=== PATIENT | male | born 1965 | race Caucasian/White ===

== ENCOUNTER 2016-08-29 09:59 | Emergency (ER) | payer SELFPAY ==
[2016-08-29 10:29] VITALS: BP 136/101
--- NOTE | 2016-08-29 11:34 | UC ---
Lower Extremity/Ankle HPI - HPI Summary HPI Summary: At around 0100, stepped on a piece of Rebar sticking out of concrete. Punctured through his running shoe, and he had a difficult time extracting it from his foot. Severe pain since then. Concerned because his last tetanus was more than 10 years ago. - History of Current Complaint Chief Complaint: UCTrauma Stated Complaint: LEFT FOOT 4TH TOE PUNCTURE WOUND-WC Time Seen by Provider: 08/29/16 11:04 Hx Obtained From: Patient Onset/Duration: Sudden Onset, Lasting Hours - about 11 hours ago. Pain Intensity: 10 Pain Scale Used: 0-10 Numeric Aggravating Factor(s): Standing, Ambulation Alleviating Factor(s): Rest, Elevation, Other - soakign Able to Bear Weight: Yes Related History: Occupational Injury - works at [employer] - Risk Factors Gout Risk Factors: Hypertension - Allergies/Home Medications Allergies/Adverse Reactions: Allergies Allergy/AdvReac Type Severity Reaction Status Date / Time Trazodone Allergy Severe See Comment Verified 08/29/16 10:30 Home Medications: Home Medications Clonazepam [Klonopin] 1 mg PO 08/29/16 [History] Hydrocodone/APAP 5/300 (NF) [Vicodin 5 MG/300 MG(NF)] 1 tab PO Q6H PRN 08/29/16 [History Confirmed 08/29/16] Levothyroxine TAB* [Synthroid TAB*] 75 mcg PO 0800 08/29/16 [History Confirmed 08/29/16] Lisinopril [Lisinopril 40 MG-] 40 mg PO DAILY 08/29/16 [History Confirmed ] Omeprazole CAP* [Prilosec CAP* 20 MG] 20 mg PO DAILY 08/29/16 [History Confirmed 08/29/16] Propranolol TAB* [Inderal TAB*] 20 mg PO BID 08/29/16 [History Confirmed ] PMH/Surg Hx/FS Hx/Imm Hx - Additional Past Medical History Additional PMH: 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 Uses [facility] Notably, [employer] search # [id number] does not show history of lyrica or narcotic use. Cardiovascular History: Hypertension Psychological History: Anxiety - Surgical History Surgical History: Yes Surgery Procedure, Year, and Place: hernia, priaprisim surgery(to correct an errection lasting > 4 hrs) - Family History Known Family History: Positive: Hypertension - father and son - Social History Occupation: Employed Full-time Lives: With Family Alcohol Use: None Substance Use Type: None Substance Use Comment - Amount & Last Used: vapes daily Smoking Status (MU): Former Smoker Type: Cigarettes When Did the Patient Quit Smoking/Using Tobacco: 2016 Review of Systems Constitutional: Negative Skin: Other - wound left foot third digit. Eyes: Negative ENT: Negative Respiratory: Negative Cardiovascular: Other - elevated blood pressure without chest pain or heart palpitations Gastrointestinal: Negative Genitourinary: Negative Motor: Negative Neurovascular: Negative Musculoskeletal: Other: - chronic hip pain. Neurological: Negative Psychological: Anxious, Other - ? sleep deprived. Has just worked 3 double shifts in a row. [facility], with [facility] with clonazepam and adderall. All Other Systems Reviewed And Are Negative: Yes Physical Exam Triage Information Reviewed: Yes Appearance: Pain Distress - moderate., Obese, Other: - anxious. Provides many details of history. Vital Signs: Initial Vital Signs Temp 98 F 08/29/16 10:13 Pulse 70 08/29/16 10:13 Resp 16 08/29/16 10:13 BP 136/101 08/29/16 10:13 Pulse Ox 100 08/29/16 10:13 Vital Signs Reviewed: Yes Respiratory: Positive: Lungs clear Cardiovascular: Positive: RRR, No Murmur Psychological Exam: Other - anxious Skin Exam: Other - left foot, plantar surface of 3rd digit with break in skin about 6 mm, with avulstion of small triangle about 3mm. No active bleeding. Normal flexion and extension of digit. Lower Extremity Course/Dx - Course Course Of Treatment: tetanus booster. Because of puncture through shoe, prophylactic use of augmentin to prevent infection. Elevation, off work. - Differential Dx/Diagnosis Provider Diagnoses: puncture wound left foot 3rd digit. Discharge - Discharge Plan Condition: Stable Disposition: HOME Prescriptions: Hydrocodone-Acetaminophen [Hydrocodone/Acetaminophen 10-325 mg] 1 tab PO Q6H PRN #10 tab MDD 4 PRN Reason: Pain Patient Education Materials: Puncture Wound (ED), Diphtheria/Pertussis/Tetanus Vaccine (By injection) Forms: *Work Release Additional Instructions: Continue elevation. I have sent in hydrocodone for pain control. you can use acetaminophen up to 3000mg per day (being cautious of the amount in the hydrocodone. Soak your foot in epsom salts 2 or 3 times per day. Keep the foot elevated as much as possible. You can be active around the house, but avoid excess activity until the wound appears healed. Off work, with return to work on 09/02/16. You have received a tetanus booster today.
[2016-08-29] MEDS ORDERED: Tetan/Diph/Pertus SYR(Tdap)* 0.5 ML SYR(BOOSTRIX) use SYR IM ONE (11:47)
== END 2016-08-29 12:25 | disposition home or self-care (01) ==
LOC: UCCORT 09:59
DX: S91.135A Puncture wound without foreign body of left lesser toe(s) without damage to nail, initial encounter (principal); W45.0XXA Nail entering through skin, initial encounter; Y93.9 Activity, unspecified; Y92.9 Unspecified place or not applicable; Y99.0 Civilian activity done for income or pay; I10 Essential (primary) hypertension; F41.9 Anxiety disorder, unspecified; E66.9 Obesity, unspecified; Z88.8 Allergy status to other drugs, medicaments and biological substances; Z87.891 Personal history of nicotine dependence
CPT/HCPCS: 90471; 90715; 99202; G0463

== ENCOUNTER 2016-11-28 14:44 | Emergency (ER) | payer BC ==
[2016-11-28 15:38] VITALS: BP 122/94
--- NOTE | 2016-11-28 16:01 | UC ---
Hip/Pelvis Pain - HPI Summary HPI Summary: 50 year old male with chronic hip pain and avascular hip pain . He [facility] and [facility] but had flat tire and missed appt and will try to go tomorrow. He is unhappy with ortho at the [facility] and wants referral to another ortho. He is in extreme pain and failed numerous meds awaiting hip replacement. has failed gabapentin, NSAIDs, steroids and GARRY. He is in severe pain and looking for pain meds at this time - History Of Current Complaint Chief Complaint: UCBackPain Stated Complaint: RIGHT HIP,BACK,THIGH,BUTTOCK PAIN Time Seen by Provider: 11/28/16 15:50 Hx Obtained From: Patient Onset/Duration: Gradual Onset Timing: Constant Severity Initially: Moderate Severity Currently: Severe - Allergies/Home Medications Allergies/Adverse Reactions: Allergies Allergy/AdvReac Type Severity Reaction Status Date / Time Trazodone Allergy Severe See Comment Verified 11/28/16 15:20 Home Medications: Home Medications ARIPiprazole TAB* [Abilify TAB*] 5 mg PO DAILY 11/28/16 [History Confirmed ] Diclofenac Potassium [Zipsor] 25 mg PO BID 11/28/16 [History Confirmed 11/28/16] Levothyroxine TAB* [Synthroid TAB*] 50 mcg PO 11/28/16 [History] Pregabalin CAP(*) [Lyrica CAP(*)] 50 mg PO BID 11/28/16 [History Confirmed 11/28] PMH/Surg Hx/FS Hx/Imm Hx Previously Healthy: Yes - Surgical History Surgical History: Yes Surgery Procedure, Year, and Place: hernia, priaprisim surgery(to correct an errection lasting > 4 hrs) - Family History Known Family History: Positive: Hypertension - father and son - Social History Occupation: Employed Full-time Lives: With Family Alcohol Use: None Substance Use Type: None Substance Use Comment - Amount & Last Used: vapes daily Smoking Status (MU): Former Smoker Type: Cigarettes, eCigarettes When Did the Patient Quit Smoking/Using Tobacco: 2016 Cessation Counseling: Patient Advised to Stop Review of Systems Neurovascular: Decreased Sensation Musculoskeletal: Arthralgia, Decreased ROM All Other Systems Reviewed And Are Negative: Yes Physical Exam Triage Information Reviewed: Yes Appearance: Well-Appearing, No Pain Distress, Well-Nourished Vital Signs: Initial Vital Signs Temp 98.5 F 11/28/16 15:26 Pulse 88 11/28/16 15:26 Resp 16 11/28/16 15:26 BP 122/94 11/28/16 15:26 Pulse Ox 100 11/28/16 15:26 Vital Signs Reviewed: Yes Eye Exam: Normal ENT Exam: Normal Dental Exam: Normal Neck exam: Normal Neck: Positive: 1 Respiratory Exam: Normal Cardiovascular Exam: Normal Musculoskeletal Exam: Normal Musculoskeletal: Positive: Other: - b/l hip pain with movement. Neurological Exam: Normal Psychological Exam: Normal Skin Exam: Normal Hip Injury Course/Dx - Course Course Of Treatment: He has documented avascular necrosis of both hips and extreme pain. He has failed numerous meds and asking for 1 day supply of narcotics to get through to [facility] -- we will give 4 pills to help for today until he can be seen. He is awaiting a hip replacement but desires second opinion and will refer to [facility] [place] at this time. Reference #: [id number] - Differential Dx/Diagnosis Differential Diagnosis/HQI/PQRI: Sprain, Strain Provider Diagnoses: avascular necrosis b/l hips Discharge - Discharge Plan Condition: Good Disposition: HOME Prescriptions: HYDROcodone/ACETAMIN 5-325 MG* [[place] 5-325 TAB*] 1 tab PO Q6H PRN #4 tab MDD 4 PRN Reason: Severe Pain Patient Education Materials: Hip Pain (ED) Referrals: Rivera Cordoba MD [Medical Doctor] - As Soon As Possible (Ortho referral ) Non Staff,Doctor [Medical Doctor] - As Soon As Possible
== END 2016-11-28 16:33 | disposition home or self-care (01) ==
LOC: UCCORT 14:44
DX: M87.851 Other osteonecrosis, right femur (principal); M87.852 Other osteonecrosis, left femur; F17.210 Nicotine dependence, cigarettes, uncomplicated; Z88.5 Allergy status to narcotic agent
CPT/HCPCS: 99212; G0463

== ENCOUNTER 2016-12-12 08:42 | Inpatient (IN) | payer BC, MEDICARE ==
--- NOTE | 2016-12-09 09:12 | HP ---
HISTORY AND PHYSICAL: DATE OF ADMISSION/SURGERY: 12/12/16. DATE OF OFFICE VISIT: 12/06/16. SURGEON: Pauline Stafford MD* (dictated by SOPHIA Tony). PROCEDURE: Right total hip arthroplasty. CHIEF COMPLAINT: Right hip pain. HISTORY OF PRESENT ILLNESS: Mr. Dunham is a 50-year-old gentleman with complaints of right hip pain secondary to severe avascular necrosis. He failed conservative management and is elected to proceed with a right total hip arthroplasty which is scheduled for 12/12/[address] Stafford. PAST MEDICAL HISTORY: ADHD, hypertension, hypothyroidism, exercise induced asthma, and GERD. PAST SURGICAL HISTORY: Hernia repair and priapism surgery. CURRENT MEDICATIONS: 1. Vitamin D. 2. Omeprazole. 3. Lyrica. 4. Amphetamine-dextroamphetamine ER. 5. Clonazepam. 6. Lisinopril. 7. Propranolol. 8. Levothyroxine. 9. Diclofenac. 10. Flexeril. 11. Oxycodone. ALLERGIES: To . FAMILY HISTORY: Diabetes. SOCIAL HISTORY: This is a 50-year-old gentleman lives with his . He does not smoke or use drugs. REVIEW OF SYSTEMS: A complete 14-point review of systems is reviewed with the patient, and was positive for hypothyroidism. He denies history of DVT, PE or anesthesia problems. PHYSICAL EXAMINATION GENERAL: He is well developed, well nourished, in no acute distress. VITAL SIGNS: He stands 72 inches tall, weighs 234 pounds. His blood pressure 116/80, his heart rate was 100. HEENT: Normocephalic, atraumatic. NECK: Supple. No palpable lymph nodes. PULMONARY: Lungs are clear to auscultation bilaterally. CARDIO: Regular rate and rhythm. Strong S1, S2. ABDOMEN: Soft, nontender, nondistended. MUSCULOSKELETAL: Right lower extremity, the skin is intact. There are no open wounds or abrasions. He walks with an antalgic type gait favoring his right hip. His lower extremity muscle group strengths are intact at 5/5. He has 2+ dorsalis pedis pulses and intact sensation. NEUROLOGIC: He is alert and oriented x3. Cranial nerves II through XII are intact. ASSESSMENT AND PLAN: Mr. Dunham is a 50-year-old gentleman with complaints of severe end-stage osteoarthritis of his right hip joint. He has failed conservative management and is elected to proceed with a right total hip arthroplasty which is scheduled for 12/12/[address] Stafford discussed the risks and benefits of surgery and all of his questions were answered. He will follow up with Dr. Stafford 2 weeks after the surgery. SOPHIA TONY [id number]/[facility] [place] #: [id number] MTDLencho
[~2016-12-12 08:42] MED LIST: Buffered Lidocaine 0.9% SYRIN* 5 ML/SYR SYRINGE INTRADERM ONE; Gabapentin CAP(*) 300 MG PO ONE
[2016-12-12] MEDS ORDERED: Gabapentin CAP(*) 300 MG ONE ×2 (09:18→09:55)
[2016-12-12] MEDS ORDERED: Buffered Lidocaine 0.9% SYRIN* 5 ML/SYR SYRINGE ONE (09:18)
[2016-12-12] MEDS ORDERED: ceFAZolin 2 GM PREMIX (*) 50 ML IVPB ONE (09:18)
[2016-12-12] MEDS ORDERED: Propranolol TAB* 20 MG PO ONE (11:00)
[2016-12-12] MEDS ORDERED: Sodium Bicarbonate 8.4% SYR* 10 ML SYRINGE ONE (11:34)
[2016-12-12] MEDS ORDERED: Midazolam* 1 MG/ML 5 ML VIAL (5 MG) ONE (11:43)
[2016-12-12] MEDS ORDERED: fentaNYL* 50 MCG/ML 2 ML VIAL (100 MCG VIAL) ONE ×3 (11:43→14:52)
[2016-12-12] MEDS ORDERED: Lidocaine 2% EPI 1:200000 MPF* 20 ML VIAL ONE (11:43)
[2016-12-12] MEDS ORDERED: Propofol* 500 MG/50 ML BTL ONE (12:14)
[2016-12-12] MEDS ORDERED: EPHEDrine (Pressors)* 50 MG/ML VIAL ONE (12:38)
[2016-12-12] MEDS ORDERED: Phenylephrine IV* 40 MCG/ML 10 ML SYRINGE ONE (13:04)
[2016-12-12] MEDS ORDERED: Ketorolac INJ* 30 MG/ML 1 ML VIAL IV PRN (13:06)
[2016-12-12] MEDS ORDERED: DiMENhydriNATE IV* 50 MG/ML VIAL IV PUSH PRN ×2 (13:06→13:07)
[2016-12-12] MEDS ORDERED: Ondansetron INJ* 2 MG/ML VIAL IV PRN ×2 (13:06→13:07)
[2016-12-12] MEDS ORDERED: oxyCODONE TAB* 5 MG TAB PO PRN (13:06)
[2016-12-12] MEDS ORDERED: Lactated Ringers 500 ml BAG* 500 ML IV PRN (13:07)
[2016-12-12] MEDS ORDERED: Ropivacaine 0.2% EPIDURAL* 200 MG/100 ML BAG EPIDURAL ONE (13:49)
[2016-12-12] MEDS ORDERED: Ropivacaine 0.2% EPIDURAL* 200 MG/100 ML BAG EPIDURAL SCH (14:00)
[2016-12-12 14:04] LABS: Urine Bilirubin Negative (Negative); Urine Glucose Negative (Negative); Urine Nitrite Negative (Negative)
--- NOTE | 2016-12-12 14:09 | RAD ---
Indication: Right hip arthroplasty Single view of the pelvis demonstrates intraoperative control film with right femoral reamer and acetabular cup in place. IMPRESSION: Intraoperative control films for right hip replacement.
[2016-12-12] MEDS ORDERED: Bisacodyl SUPP* 10 MG SUPP PR PRN (14:49)
[2016-12-12] MEDS ORDERED: Polyethylene Glycol 3350* 17 GM PACKET PO PRN (14:49)
[2016-12-12] MEDS ORDERED: Ketorolac INJ* 30 MG/ML 1 ML VIAL ONE (14:53)
[2016-12-12] MEDS: fentaNYL* 50 MCG/ML 2 ML VIAL (100 MCG VIAL) IV PRN ×2 (14:54→15:17)
[2016-12-12] MEDS ORDERED: clonazePAM TAB(*) 1 MG PO PRN (15:01)
--- NOTE | 2016-12-12 15:27 | RAD ---
HISTORY: Status post right hip arthroplasty COMPARISONS: December 02, 2016 VIEWS: 3, Frontal view of the pelvis with frontal and crosstable lateral views of the right hip FINDINGS: BONE DENSITY: Normal. BONES: The patient is status post right hip arthroplasty. There is no hardware failure or osteolysis. JOINTS: The patient is status post right hip arthroplasty. There is advanced osteoarthritis of the left hip ALIGNMENT: There is no dislocation. SOFT TISSUES: Unremarkable. OTHER FINDINGS: None. IMPRESSION: STATUS POST RIGHT HIP ARTHROPLASTY
[2016-12-12] MEDS ORDERED: Warfarin TAB(*) 10 MG PO ONE (17:00)
[2016-12-12] MEDS: ceFAZolin 1 GM VIAL(*) 1 GM in NS 0.9% 50 ML* 50 ML IVPB SCH (19:52)
[2016-12-12] MEDS ORDERED: Ibuprofen TAB* 400 MG PO PRN (21:00)
[2016-12-12] MEDS ORDERED: clonazePAM TAB(*) 1 MG PO SCH (21:00)
[2016-12-12] MEDS ORDERED: Pregabalin CAP(*) 50 MG PO SCH (21:00)
--- NOTE | 2016-12-12 22:10 | CONS ---
MEDICAL CONSULTATION REPORT: DATE OF CONSULTATION: 12/12/16 PRIMARY CARE PROVIDER: [facility] REQUESTING PROVIDER: Pauline Stafford MD* CONSULTING PROVIDER: SOPHIA Escamilla SUPERVISING PHYSICIAN: Vini Almanza MD CHIEF COMPLAINT: Status post right total hip arthroplasty. HISTORY OF PRESENT ILLNESS: This is a 51-year-old gentleman, who underwent elective total hip replacement with Dr. Stafford earlier today. Hospitalist group has been asked for medical co-management consultation. The patient was evaluated by his primary care provider prior to surgery, labs and preop notes were reviewed. The patient is treated for hypertension, anxiety, PTSD, insomnia , ADD, hypothyroidism, and has a remote history of alcoholism reportedly in remission. His chronic medical problems have been well controlled. The patient denies any recent illness, denies any recent change in exercise tolerance. No complaints of chest pain, shortness of breath, abdominal pain, nausea, vomiting , or fevers. When evaluated in the recovery area, the patient states that he is feeling quite well. He had spinal anesthesia and denies any significant pain or severe nausea. Specifically, denies chest pain or shortness of breath. HOME MEDICATIONS: 1. Adderall 30 mg p.o. daily. 2. Baclofen 10 mg p.o. 4 times daily as needed for muscle spasm. 3. Clonazepam 2 mg p.o. at bedtime and a half a mg in the morning. 4. Hydrocodone/acetaminophen 5/325 one tab p.o. q.6 hours as needed for pain. 5. Hydrochlorothiazide 25 mg p.o. daily. 6. Levothyroxine 88 mcg p.o. daily. 7. Lisinopril 20 mg p.o. daily. 8. Omeprazole 20 mg p.o. daily. 9. Lyrica 75 mg p.o. twice daily. 10. Propranolol 20 mg p.o. twice daily. PAST MEDICAL HISTORY: 1. Hypertension. 2. Depression and anxiety. 3. PTSD. 4. Hypothyroidism. 5. Insomnia. 6. History of alcoholism, reportedly in remission. SOCIAL HISTORY: The patient lives at home with his . No smoking history or illicit drug use. Remote history of alcoholism. REVIEW OF SYSTEMS: As noted above in HPI. All other systems reviewed and otherwise negative. PHYSICAL EXAMINATION: Vitals: Temperature 98.6 degrees Fahrenheit, pulse 67 beats per minute, respiratory rate 16 per minute, oxygen saturation 97% on room air, blood pressure 115/80 mmHg. General: This is a pleasant well-appearing middle aged gentleman in no acute distress. HEENT: Head is normocephalic, atraumatic. Mucous membranes are pink and moist. Cardiovascular: Heart has a regular rate and rhythm without murmurs, rubs, or gallops. Respiratory: Lungs are clear to auscultation without wheezes, crackles, or rhonchi. Abdomen: Soft and nontender to palpation. Extremities: Hip pillow is in place. No significant edema appreciated. Psych: The patient is alert and appropriately oriented. DIAGNOSTIC STUDIES/LAB DATA: Labs reviewed from 12/10/16, CBC shows a mild leukocytosis with white blood cell count of 12,600, hemoglobin of 14.6 g/dL, and platelet count of 333,000. Comprehensive metabolic panel is unremarkable. Preop creatinine specifically is 1.1. IMAGIN. Preop EKG shows normal sinus rhythm. 2. Preop chest x-ray shows no acute process. ASSESSMENT AND PLAN: This is a 51-year-old gentleman with history of hypertension, hypothyroidism, and significant psychiatric history including post traumatic stress disorder, depression and anxiety, and insomnia for which he sees a psychiatrist regularly. The patient underwent a left hip total hip arthroplasty earlier today and hospitalist group has been asked to consult for medical co-management. 1. Status post total hip arthroplasty - postop management per orthopedic surgery group including DVT prophylaxis, discharge planning, and pain management. 2. Hypertension - the patient is noted to be normotensive postoperatively. Would recommend holding his lisinopril on postop day #1 and evaluating appropriateness to resume for postop day #2 along with his hydrochlorothiazide. 3. Attention deficit disorder - the patient states that the Adderall is mostly necessary for work. Does not feel that it will be necessary during this hospital stay and this will be held. This can be reviewed with the patient if he feels like he is having symptoms and would like the Adderall reintroduced, but would like to avoid this postoperatively due to possibility of hypertension. 4. Hypothyroidism. Plan to continue with current dose of levothyroxine. 5. Depression, anxiety, and post traumatic stress disorder - continue his typical home medicine including his clonazepam and propranolol as prescribed by his psychiatrist. 6. Code status. The patient is full code. 7. Healthcare proxy is his . 8. DVT prophylaxis. Enoxaparin per Orthopedic Surgery. DISPOSITION: Hospitalist group will continue to follow along. Discharge planning per Orthopedic Surgery. SOPHIA ESCAMILLA [id number]/[facility] #: [id number] ARY
[2016-12-12] MEDS ORDERED: Pregabalin CAP(*) 25 MG PO SCH (22:16)
[2016-12-12] MEDS: Magnesium Hydroxide LIQ* 30 ML UDC PO SCH (22:19)
[2016-12-12] MEDS: Docusate CAP* 100 MG PO SCH (22:20)
[2016-12-12] MEDS: Propranolol TAB* 20 MG PO SCH (22:20)
[2016-12-12] MEDS: Pregabalin CAP(*) 25 MG PO SCH (22:30)
[2016-12-13] MEDS: ceFAZolin 1 GM VIAL(*) 1 GM in NS 0.9% 50 ML* 50 ML IVPB SCH ×2 (03:47→12:43)
[2016-12-13] MEDS: oxyCODONE TAB* 5 MG TAB PO SCH ×6 (05:37→21:37)
[2016-12-13] MEDS: Levothyroxine TAB* 88 MCG TAB PO SCH (05:38)
[2016-12-13] MEDS ORDERED: Ondansetron INJ* 2 MG/ML VIAL IV PRN (06:00)
[2016-12-13] MEDS ORDERED: Ondansetron TAB* 4 MG PO PRN (06:00)
[2016-12-13] MEDS ORDERED: Acetaminophen TAB* 325 MG PO PRN (06:00)
[2016-12-13] MEDS ORDERED: diPHENhydraMINE IV* 50 MG/ML 1 ml VIAL (BENADRYL) IV PRN (06:00)
[2016-12-13] MEDS ORDERED: oxyCODONE TAB* 5 MG TAB PO PRN (06:00)
[2016-12-13 07:08] LABS: Hematocrit 37 % (42-52); Hemoglobin 12.5 g/dl (14.0-18.0)
[2016-12-13 07:22] LABS: BUN/Creatinine Ratio 15.2 (8-20); Calcium 8.5 mg/dL (8.6-10.3); EGFR African American 111.1 (>60); EGFR Non-African American 86.4 (>60)
[2016-12-13] MEDS: Omeprazole CAP* 20 MG PO SCH (07:45)
[2016-12-13] MEDS: Morphine INJ* 10 MG/ML 1 ML CARPUJECT IV PRN ×2 (07:45→10:36)
[2016-12-13] MEDS ORDERED: Hydrochlorothiazide TAB* 25 MG PO SCH (09:00)
[2016-12-13] MEDS ORDERED: LISINOPRIL PO SCH (09:00)
[2016-12-13] MEDS ORDERED: Amphetamine MIXED SALT TAB* 10 MG TAB PO SCH (09:00)
[2016-12-13] MEDS: Pregabalin CAP(*) 25 MG PO SCH ×2 (09:16→20:57)
[2016-12-13] MEDS: clonazePAM TAB(*) 0.5 MG PO SCH (09:16)
[2016-12-13] MEDS: Vitamin THERAPEUTIC TAB PO SCH (09:16)
[2016-12-13] MEDS: Docusate CAP* 100 MG PO SCH ×2 (09:16→20:12)
[2016-12-13] MEDS: Magnesium Hydroxide LIQ* 30 ML UDC PO SCH ×2 (09:17→20:12)
[2016-12-13] MEDS: Propranolol TAB* 20 MG PO SCH ×2 (09:17→20:58)
[2016-12-13] MEDS: Enoxaparin(*) 40 MG/0.4 ML SYR SUBCUT SCH (10:40)
[2016-12-13] MEDS: Baclofen TAB* 10 MG PO PRN ×2 (10:42→13:58)
--- NOTE | 2016-12-13 11:44 | PN ---
Progress Note - Progress Note Date of Service: 12/13/16 SOAP: Subjective: []Patient is seen OOB in chair. Is having some difficulty managing his right hip pain, also c/o burning pain in anterior thigh. Did walk with PT and did well despite pain. Denies SOB, CP or dizziness. Objective: [] Vital Signs Temp 99.8 F 12/13/16 09:09 Pulse 103 12/13/16 09:09 Resp 16 12/13/16 11:15 BP 102/63 12/13/16 09:09 Pulse Ox 96 12/13/16 11:16 Intake & Output 12/12/16 12/13/16 12/13/16 18:59 06:59 18:59 Intake Total 3615 1390 250 Output Total 425 2200 600 Balance 3190 -810 -350 Intake: IV Fluids 3300 990 LR 3250 990 NS 50ML, Cefazolin 2G 50 Oral 315 400 250 Output: Urine 600 Morales 425 2200 Other: Estimated Blood Loss 300 Comment Laboratory Results - last 24 hr 12/12/16 12/13/16 12/13/16 12:41 05:58 05:58 Hgb 12.5 L Hct 37 L INR (Anticoag Therapy) 1.03 Sodium Potassium Chloride Carbon Dioxide Anion Gap BUN Creatinine Est GFR ( Amer) Est GFR (Non-Af Amer) BUN/Creatinine Ratio Glucose Calcium Urine Color Straw Urine Appearance Clear Urine pH 7.0 Ur Specific [place] 1.004 L Urine Protein Negative Urine Ketones Negative Urine Blood Negative Urine Nitrate Negative Urine Bilirubin Negative Urine Urobilinogen Negative Ur Leukocyte Esterase Negative Urine Glucose Negative 12/13/16 05:58 Hgb Hct INR (Anticoag Therapy) Sodium 136 Potassium 4.0 Chloride 100 L Carbon Dioxide 27 Anion Gap 9 BUN 14 Creatinine 0.92 Est GFR ( Amer) 111.1 Est GFR (Non-Af Amer) 86.4 BUN/Creatinine Ratio 15.2 Glucose 123 H Calcium 8.5 L Urine Color Urine Appearance Urine pH Ur Specific [place] Urine Protein Urine Ketones Urine Blood Urine Nitrate Urine Bilirubin Urine Urobilinogen Ur Leukocyte Esterase Urine Glucose Right hip dressings are dry and intact +DF/PF right ankle gross sensation intact RLE calf NT and soft Assessment: []s/p Right total hip arthroplasty POD #1 Plan: []PT/OT WBAT RLE Increase Roxycodone Add Toradol as that has worked in the past for him Coumadin with Lovenox bridge- 8 mg today Home when pain well managed and PT/OT goals met
[2016-12-13] MEDS ORDERED: Ketorolac INJ* 30 MG/ML 1 ML VIAL IV PUSH PRN (11:46)
[2016-12-13] MEDS: oxyCODONE TAB* 5 MG TAB PO PRN ×4 (12:22→21:40)
--- NOTE | 2016-12-13 16:52 | PN ---
Subjective Date of Service: 12/13/16 Interval History: Pt feels well, c/o pain in post op R hip, but walked with PT today Objective Active Medications: Acetaminophen (Tylenol Tab*) 650 mg PO Q8H PRN PRN Reason: pain, fever Baclofen (Lioresal Tab*) 10 mg PO QID PRN PRN Reason: MUSCLE RIGIDITY Last Admin: 12/13/16 13:58 Dose: 10 mg Bisacodyl (Dulcolax Supp*) 10 mg RI DAILY PRN PRN Reason: constipation Clonazepam (Klonopin Tab(*)) 0.5 mg PO QAM [facility] Last Admin: 12/13/16 09:16 Dose: 0.5 mg Clonazepam (Klonopin Tab(*)) 2 mg PO BEDTIME PRN PRN Reason: INSOMNIA Diphenhydramine HCl (Benadryl Iv*) 12.5 mg IV Q6H PRN PRN Reason: PRURITIS Docusate Sodium (Colace Cap*) 100 mg PO BID [facility] Last Admin: 12/13/16 09:16 Dose: 100 mg Enoxaparin Sodium (Lovenox(*)) 40 mg SUBCUT Q24H [facility] Last Admin: 12/13/16 10:40 Dose: 40 mg Lactated Ringer's (Lactated Ringers 1000 Ml Bag*) 1,000 mls @ 200 mls/hr IV PER RATE [facility] Ropivacaine (Ropivacaine 0.2% Epidural*) 200 mg in 100 mls @ 0 mls/hr EPIDURAL .PER RATE [facility]; Per Protocol PRN Reason: Protocol Last Admin: 12/12/16 22:30 Dose: 12 mls/hr Lactated Ringer's (Lactated Ringers 1000 Ml Bag*) 1,000 mls @ 125 mls/hr IV PER RATE [facility] Last Admin: 12/13/16 01:57 Dose: 125 mls/hr Ketorolac Tromethamine (Toradol Inj*) 30 mg IV PUSH Q6H PRN PRN Reason: PAIN Lactulose (Lactulose*) 30 ml PO Q6H PRN PRN Reason: constipation Levothyroxine Sodium (Synthroid Tab*) 88 mcg PO QAM@0600 [facility] Last Admin: 12/13/16 05:38 Dose: 88 mcg Magnesium Hydroxide (Milk Of Magnesia Liq*) 30 ml PO BID [facility] Last Admin: 12/13/16 09:17 Dose: 30 ml Morphine Sulfate (Morphine Inj (Syringe)*) 5 mg IV Q2H PRN PRN Reason: PAIN - BREAKTHROUGH Last Admin: 12/13/16 10:36 Dose: 5 mg Multivitamins (Theragran Tab*) 1 tab PO DAILY [facility] Last Admin: 12/13/16 09:16 Dose: 1 tab Omeprazole (Prilosec Cap*) 20 mg PO QAM@0730 [facility] Last Admin: 12/13/16 07:45 Dose: 20 mg Ondansetron HCl (Zofran Inj*) 4 mg IV Q6H PRN PRN Reason: nausea Ondansetron HCl (Zofran Tab*) 4 mg PO Q6H PRN PRN Reason: NAUSEA Oxycodone HCl (Roxycodone Tab*) 10 mg PO Q3H PRN PRN Reason: PAIN - MODERATE TO SEVERE Last Admin: 12/13/16 09:15 Dose: 10 mg Oxycodone HCl (Roxycodone Tab*) 5 mg PO Q3HR [facility] Last Admin: 12/13/16 15:20 Dose: Not Given Oxycodone HCl (Roxycodone Tab*) 15 mg PO Q3H PRN PRN Reason: SEVERE PAIN Last Admin: 12/13/16 15:35 Dose: 15 mg Polyethylene Glycol/Electrolytes (Miralax*) 17 gm PO DAILY PRN PRN Reason: Constipation Pregabalin (Lyrica Cap(*)) 75 mg PO 0900,2100 [facility] Last Admin: 12/13/16 09:16 Dose: 75 mg Propranolol HCl (Inderal Tab*) 20 mg PO BID [facility] Last Admin: 12/13/16 09:17 Dose: 20 mg Warfarin Sodium (Coumadin Tab(*)) 8 mg PO ONCE@1700 ONE PRN Reason: Protocol Stop: 12/13/16 17:01 Vital Signs 12/12/16 12/12/16 12/12/16 16:49 17:49 19:40 Temperature 96.7 F 97.4 F Pulse Rate 72 66 Respiratory 15 19 Rate Blood Pressure 133/79 111/64 (mmHg) O2 Sat by Pulse 100 98 100 Oximetry 12/12/16 12/12/16 12/12/16 19:55 20:00 20:57 Temperature 96.8 F Pulse Rate 72 Respiratory 16 16 16 Rate Blood Pressure 131/71 (mmHg) O2 Sat by Pulse 100 Oximetry 12/12/16 12/12/16 12/13/16 22:30 23:27 00:00 Temperature 98.2 F Pulse Rate 95 Respiratory 16 16 Rate Blood Pressure 133/85 (mmHg) O2 Sat by Pulse 97 92 Oximetry 12/13/16 12/13/16 12/13/16 00:30 03:43 04:26 Temperature 99.7 F 99.7 F Pulse Rate 109 109 Respiratory 16 16 16 Rate Blood Pressure 127/66 127/66 (mmHg) O2 Sat by Pulse 92 92 Oximetry 12/13/16 12/13/16 12/13/16 05:37 07:34 07:37 Temperature 99.8 F Pulse Rate 103 Respiratory 16 18 18 Rate Blood Pressure 102/63 (mmHg) O2 Sat by Pulse 96 Oximetry 12/13/16 12/13/16 12/13/16 07:45 08:00 08:45 Temperature Pulse Rate Respiratory 18 18 16 Rate Blood Pressure (mmHg) O2 Sat by Pulse 96 Oximetry 12/13/16 12/13/16 12/13/16 09:09 09:15 09:16 Temperature 99.8 F Pulse Rate 103 Respiratory 18 16 16 Rate Blood Pressure 102/63 (mmHg) O2 Sat by Pulse 96 Oximetry 12/13/16 12/13/16 12/13/16 10:36 11:15 11:16 Temperature Pulse Rate Respiratory 16 16 Rate Blood Pressure (mmHg) O2 Sat by Pulse 96 Oximetry 12/13/16 12/13/16 12/13/16 11:36 11:37 12:22 Temperature 99.5 F Pulse Rate 101 Respiratory 16 16 16 Rate Blood Pressure 108/64 (mmHg) O2 Sat by Pulse 96 Oximetry 12/13/16 12/13/16 12/13/16 14:22 15:35 16:00 Temperature Pulse Rate Respiratory 16 16 Rate Blood Pressure (mmHg) O2 Sat by Pulse 96 Oximetry 12/13/16 16:13 Temperature 99.7 F Pulse Rate 96 Respiratory 18 Rate Blood Pressure 101/60 (mmHg) O2 Sat by Pulse 96 Oximetry Oxygen Devices in Use Now: None Appearance: 51 yo m in nAD, AAOx3 Eyes: No Scleral Icterus, PERRLA Ears/Nose/Mouth/Throat: NL Teeth, Lips, Gums, Mucous Membranes Moist Neck: NL Appearance and Movements; NL JVP, Trachea Midline Respiratory: Symmetrical Chest Expansion and Respiratory Effort, Clear to Auscultation Cardiovascular: NL Sounds; No Murmurs; No JVD, RRR Abdominal: NL Sounds; No Tenderness; No Distention Lymphatic: No Cervical Adenopathy Extremities: No Clubbing, Cyanosis, - - mild R thigh edema Skin: No Nodules or Sclerosis, - - R hip post op dressings, not removed Neurological: Alert and Oriented x 3, NL Muscle Strength and Tone Result Diagrams: 12/13/16 05:58 12/13/16 05:58 Microbiology and Other Data: Microbiology 12/12/16 12:41 Urine Culture - Final Urine No Growth (<1,000 CFU/mL) Assess/Plan/Problems-Billing Assessment: 51 yo M with h/o HTN, ADHD, PTSD, anxiety, hypothyroidism for medical consult after R hip replacement - Patient Problems (1) Hip joint replacement status Comment: POD 1 doding well As per Ortho (2) HTN (hypertension) Comment: controled on Propranolol Recommend holding HCTZ and lisinopril to be restarted for discharge (3) ADHD Comment: cont Adderall (4) Anxiety Comment: cont clonazepam (5) DVT prophylaxis Comment: as per ortho-lovenox and coumadin Status and Disposition: Thank you very much for consult, will sign off, will see pt prn
[2016-12-13] MEDS ORDERED: Warfarin TAB(*) 4 MG PO ONE (17:00)
--- NOTE | 2016-12-13 19:13 | OP ---
DATE OF OPERATION: 12/12/16 - ROOM #335 DATE OF : 63 SURGEON: Pauline Stafford MD DIGITAL MEDIA DIRECTOR: SOPHIA Ruvalcaba. Ms. Connelly did help throughout the procedure with preparation of the leg wound retraction, manipulation of the hip , and wound closure. ANESTHESIOLOGIST: Dr. Arreguin. ANESTHESIA: Spinal. 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 OPERATIVE PROCEDURE: Right total hip arthroplasty. HARDWARE USED: Uncemented Kelsey total hip hardware. For the cup, a 60S Tritanium cluster hole shell, a single 30 mm screw was used. Trident X3 0- degree liner 40S. For the stem, Accolate TMZF 4.5 with a 127-degree neck. For the head, a ceramic Biolox delta V40 +4 femoral head. COMPLICATIONS: None. ESTIMATED BLOOD LOSS: 300 cc. SPECIMENS: Femoral neck and acetabular reaming sent to Pathology. BRIEF HISTORY/INDICATION: Mr. Dunham is a 51-year-old gentleman with years of increasingly severe right hip pain. He was diagnosed with avascular necrosis of the femoral head. He failed conservative treatment with antiinflammatories, physical therapy, pain medications, and activity modification. Radiographs confirmed end-stage avascular necrosis with subchondral collapse and fracture of the femoral head. Due to severe pain and decreased quality of life, he elected to undergo right total hip arthroplasty. Informed consent was obtained from the patient. He understood the risks of the procedure included, but were not limited to, bleeding, infection, damage to nearby structures, continued pain, need for further surgery, intraoperative fracture, nerve palsy, hardware failure or loosening, dislocation, leg length discrepancy, stroke, heart attack, blood clot, and . He wished to proceed. INTRAOPERATIVE FINDINGS: Intraoperatively, the patient was noted to have complete loss of cartilage along the acetabulum and femoral head. Femoral head had superior portion with subchondral collapse and essentially a fracture. DESCRIPTION OF PROCEDURE: Mr. Dunham was identified in the preanesthesia unit. His right lower extremity was marked as the correct operative site. Informed consent was signed and placed in the chart. The patient was taken to the operating room and placed under spinal anesthesia. A Morales catheter was placed. The patient was placed in the left lateral decubitus position on the PEG board and all bony prominences were well padded. Right lower extremity was prepped and draped in the usual sterile fashion. Preop time-out was made to correctly identify the patient's side and site. Appropriate perioperative antibiotics were given within 1 hour of incision. A 15 cm posterior hip incision was made with a 10-blade and carried down to the lateral fascial layer. The lateral fascial layer was incised in line with the skin incision. A Charnley retractor was placed. The piriformis and conjoint tendons were identified. These were elevated off the posterolateral femur using electrocautery and tagged with #5 Ethibond. Electrocautery was then used to make a standard posterolateral capsular flap and this was also tagged with # 5 Ethibond. The hip was carefully dislocated. The femoral head was noted to have superior subchondral collapse and essentially a fracture. Lesser troch to center of the femoral head measured 60 mm. The oscillating saw was used to make the appropriate femoral neck cut. Femoral head was sent to Pathology. The femur was carefully retracted anteriorly. After appropriate placement of retractors, the acetabulum was easily visualized. Long-handle knife was used to remove any remaining labrum from the acetabular rim. The acetabulum was sequentially reamed up to a size 59. A good bleeding subchondral bone bed was obtained. A 59 trial had excellent fit. Final implant chosen was a 60S Tritanium hemispherical cluster hole shell. This was impacted into the acetabulum without difficulty. There was excellent stability. Appropriate anteversion and abduction angles were noted. A single 30 mm screw was placed in the superior posterior quadrant for extra stability. Polyethylene liner Trident X3 40S was chosen as the insert. This was impacted into the acetabulum without difficulty. Stability of the liner was checked and rechecked and noted to be stable. Attention was turned next to preparation of the proximal femur. A box cut osteotome and canal finder were used to enter the proximal femur. The proximal femur was sequentially broached up to a size 4.5. The 4.5 broach had excellent fit and appropriate anteversion. A 1.7 neck trial was placed as well as a 40 + 0 head trial. The hip was reduced and taken through a range of motion. The hip was stable in all positions. Soft tissue tension was loose a small amount , therefore the hip was dislocated and a 40 +4 femoral head was trialed. Lesser troch to center of the femoral head was measured at 60 mm. The hip was reduced and taken through a range of motion. The hip was stable in all positions. Soft tissue tension and leg length seemed to be appropriate. The hip was carefully dislocated. All trials were carefully removed. Final implant chosen was an Accolade TMZF size 4.5 with a 127-degree neck. This was impacted into the femoral canal without difficulty. There was good stability and anteversion. A Biolox delta ceramic V40 femoral head was chosen with a +4 sleeve. This was impacted on to the femoral neck without difficulty. The lesser troch to the center of the femoral head measured 60 mm. The hip was reduced and taken through a range of motion. The hip was stable in all positions. The hip was copiously irrigated with sterile saline. Previously tagged capsule and tendons were reapproximated using two trochanteric drill holes. The lateral fascial layer was reapproximated using interrupted #1 Vicryl. The rest of the incision was closed in a layered fashion using 0 and 2-0 Vicryl. Skin was closed using running 3-0 Monocryl with Dermabond. Sterile Adaptic, 4x4s, and paper tape were used to cover the incision. The patient's anesthesia was reversed without difficulty. He was taken to the PACU in stable condition. Intended weightbearing will be weightbearing as tolerated with posterior hip precautions. Intended DVT prophylaxis will be Coumadin with Lovenox bridge. [id number]/[facility] #: [id number] ARY
[2016-12-14] MEDS: oxyCODONE TAB* 5 MG TAB PO PRN ×4 (00:52→12:49)
[2016-12-14] MEDS: oxyCODONE TAB* 5 MG TAB PO SCH ×6 (00:53→14:15)
[2016-12-14] MEDS: Levothyroxine TAB* 88 MCG TAB PO SCH (05:39)
[2016-12-14] MEDS: Omeprazole CAP* 20 MG PO SCH (07:40)
[2016-12-14] MEDS: Docusate CAP* 100 MG PO SCH (08:09)
[2016-12-14] MEDS: clonazePAM TAB(*) 0.5 MG PO SCH (08:09)
[2016-12-14] MEDS: Vitamin THERAPEUTIC TAB PO SCH (08:09)
[2016-12-14] MEDS: Pregabalin CAP(*) 25 MG PO SCH (08:10)
[2016-12-14] MEDS: Magnesium Hydroxide LIQ* 30 ML UDC PO SCH (08:11)
[2016-12-14 08:25] LABS: Hematocrit 35 % (42-52); Hemoglobin 11.8 g/dl (14.0-18.0); Mean Platelet Volume 8 um3 (7.4-10.4)
--- NOTE | 2016-12-14 09:13 | PN ---
Progress Note - Progress Note Date of Service: 12/14/16 SOAP: Subjective: Pt. is alert, pain controlled. Objective: RLE - inc c/d/i. dressing changed, distally nvi. Vital Signs: Temp Pulse Resp BP Pulse Ox 99.7 F 89 18 100/66 95 12/14/16 07:35 12/14/16 07:35 12/14/16 08:10 12/14/16 07:35 12/14/16 08:23 Laboratory Results - last 24 hr 12/14/16 12/14/16 07:58 07:58 Hgb 11.8 L Hct 35 L Plt Count 234 MPV 8 INR (Anticoag Therapy) 1.85 H Assessment: 51 yo M pod 2 s/p RTHA Plan: wbat rle post hip precautions lovenox dose today, d/c on coumadin pt/ot d/c to home today
[2016-12-14] MEDS: Propranolol TAB* 20 MG PO SCH (10:11)
[2016-12-14] MEDS: Enoxaparin(*) 40 MG/0.4 ML SYR SUBCUT SCH (11:01)
[2016-12-14 13:20] VITALS: BP 105/62
--- NOTE | 2016-12-14 13:33 | DS ---
AMENDED REPORT NOW INCLUDES COSIGNER DESIGNATION - ESIGNED BEFORE ADJUSTMENT DISCHARGE SUMMARY: DATE OF ADMISSION: 12/12/16 DATE OF DISCHARGE: 12/14/16 PROVIDER: Dr. Pauline Stafford * (DICTATED BY SOPHIA TIAN) ADMITTING DIAGNOSIS: Severe end-stage osteoarthritis of the right hip. DISCHARGE DIAGNOSIS: Severe end-stage osteoarthritis of the right hip, status post right total hip arthroplasty. SECONDARY DIAGNOSES: 1. Attention deficit hyperactivity disorder. 2. Hypertension. 3. Hypothyroidism. 4. Asthma. 5. Gastroesophageal reflux disease. HISTORY OF PRESENT ILLNESS: Mr. Dunham is a 51-year-old male, who has had ongoing complaints of right hip pain secondary to avascular necrosis of the hip. He failed conservative management and elected to proceed with a right total hip arthroplasty. HOSPITAL COURSE: On 12/12/16, the patient was admitted to [facility] and underwent a successful right total hip arthroplasty by Dr. Stafford. He recovered briefly in the post-anesthesia care unit and was transferred to the short stay surgical unit in stable condition. On postop day 0, the patient required oral and IV pain medication. He was given 10 mg of Coumadin that night. He was bridged with Lovenox. On postop day 1, the patient was able to participate in physical therapy, ambulate short distance with the use of a rolling walker. His pain remained controlled with oral and IV pain medication. He had an INR of 1.03 and an H and H of 12.5 and 37. He was then given 8 mg of Coumadin that night. On postop day 2, the patient had an H and H of 11.8 and 35, INR was 1.85. He was more comfortable and pain was controlled with oral pain medication. He was stable for discharge at that time. Throughout the hospital course, the patient's vital signs remained stable. He was afebrile. DISCHARGE CONDITION: Stable. DISCHARGE MEDICATIONS: The patient will have: 1. Oxycodone 5 mg, 1 to 3 tabs p.o. q.4 to 6 hours p.r.n. pain. 2. Colace 100 mg p.o. b.i.d. 3. Coumadin 2 mg daily or as instructed by the visiting nurse service. He has understanding to take 6 mg on 12/14/16, 4 mg on 12/15/16. The patient will resume his home medications of: 1. Klonopin 0.5 mg p.o. q.a.m. 2. Propranolol 20 mg p.o. b.i.d. 3. Lyrica 75 mg p.o. b.i.d. 4. Omeprazole 20 mg p.o. q. day. 5. Lisinopril 20 mg p.o. q. day. 6. Levothyroxine 88 mcg p.o. q. day. 7. Hydrochlorothiazide 25 mg p.o. q. day. 8. Klonopin 2 mg p.o. q.h.s. 9. Baclofen 10 mg p.o. 4 times a day p.r.n. 10. Adderall 30 mg p.o. q. day. DISCHARGE INSTRUCTIONS: The patient will be weightbearing as tolerated with a rolling walker. He will have visiting nurse services for wound care and INR draws. He will home physical therapy. He was reminded of his posterior hip precautions prior to discharge. He has understanding to keep his dressing clean and dry until postop day 4; at that time, he may remove the dressing and shower normally with soap and water. He has understanding not to submerge the wound in a bathtub, hot tub or swimming pool. He is to elevate the leg frequently. He will follow up in the office 10 to [address] Stafford. He has understanding to call the office with any problems or concerns. He has understanding to go directly to the emergency room with any chest pain, shortness of breath, fever greater than 101.5, calf pain or swelling. SOPHIA TIAN [id number]/[facility] #: [id number] ARY
== END 2016-12-14 13:42 | disposition home health service (06) | DRG 301 ==
LOC: AA 08:42 → SSU 14:49
PROVIDERS: ADMIT Orthopaedic Surgery Adult Reconstructive Orthopaedic Surgery; ATTEND Orthopaedic Surgery Adult Reconstructive Orthopaedic Surgery
PROC: 0SR904A Replacement of Right Hip Joint with Ceramic on Polyethylene Synthetic Substitute, Uncemented, Open Approach (ICD-10-PCS; principal; 2016-12-12 11:00)
DX: M16.11 Unilateral primary osteoarthritis, right hip (principal); M87.9 Osteonecrosis, unspecified; I10 Essential (primary) hypertension; F90.9 Attention-deficit hyperactivity disorder, unspecified type; E03.9 Hypothyroidism, unspecified; J45.990 Exercise induced bronchospasm; K21.9 Gastro-esophageal reflux disease without esophagitis; F43.10 Post-traumatic stress disorder, unspecified; F41.9 Anxiety disorder, unspecified; F32.9 Major depressive disorder, single episode, unspecified; E66.9 Obesity, unspecified; Z68.30 Body mass index [BMI] 30.0-30.9, adult; Z83.3 Family history of diabetes mellitus
CPT/HCPCS: 36415; 71020; 80048; 81003; 85014; 85018; 85049; 85610; 85730; 86850; 86900; 86901; 87086; 94760; A9270-GY; C1713; C1776; J0690; J1650; J1885; J2250; J2270; J2704; J2795; J3010

== ENCOUNTER 2017-04-03 07:30 | Inpatient (IN) | payer BC ==
--- NOTE | 2017-04-21 18:05 | HP ---
HISTORY AND PHYSICAL: DATE OF ADMISSION/SURGERY: 05/01/17 DATE OF OFFICE VISIT: 04/21/17 SURGEON: Pauline Stafford MD * (DICTATED BY SOPHIA TONY) PROCEDURE: Left total hip arthroplasty. CHIEF COMPLAINT: Left hip pain. HISTORY OF PRESENT ILLNESS: Mr. Dunham is a 51-year-old gentleman with continued complaints of left hip pain. He has failed conservative management and elected to proceed with a left total hip arthroplasty, which is scheduled for 05/01/[address] Stafford. PAST MEDICAL HISTORY: ADHD, hypertension, hypothyroidism, asthma, GERD, and bipolar disorder. PAST SURGICAL HISTORY: Hernia repair, priapism surgery, and a right total hip arthroplasty. CURRENT MEDICATIONS: 1. Lyrica 75 mg 3 times a day. 2. Adderall. 3. Clonazepam 0.5 mg daily as needed. 4. Lisinopril 40 mg daily. 5. Propranolol 20 mg twice daily. 6. Levothyroxine 75 mcg once daily. 7. Diclofenac sodium 50 mg twice a day as needed. 8. Vitamin D. 9. Omeprazole 20 mg daily. 10. Probiotic. ALLERGIES: TRAZODONE. FAMILY HISTORY: Diabetes. SOCIAL HISTORY: This is a 51-year-old gentleman, who lives with his and 5 children. He does not smoke, use drugs, or alcohol. REVIEW OF SYSTEMS: A complete 14-point review of systems was reviewed with the patient and it was positive for hypothyroidism, GERD, and asthma. He denies history of DVT, PE, hepatitis C, HIV, or anesthesia problems. PHYSICAL EXAMINATION GENERAL: He is well-developed, well-nourished, in no acute distress. VITAL SIGNS: He stands 6 feet 1 inch tall, weighs 220 pounds, blood pressure 120/80, his heart rate is 88. HEENT: Normocephalic, atraumatic. NECK: Supple. No palpable lymph nodes. PULMONARY: Lungs are clear to auscultation bilaterally. CARDIO: Regular rate and rhythm. Strong S1 and S2. ABDOMEN: Soft, nontender, nondistended. NEUROLOGIC: He is alert and oriented x3. Cranial nerves II through XII are intact. MUSCULOSKELETAL: Left lower extremity, skin is intact. There are no open wounds or abrasions. He walks with an antalgic-type gait favoring his left hip. He has decreased internal and external rotation of the left hip. He has 2 + dorsalis pedis pulses, intact sensation, his lower extremity muscular group strengths are intact at 5/5. ASSESSMENT AND PLAN: Mr. Dunham is a 51-year-old gentleman with continued complaints of left hip pain. He has failed conservative management and elected to proceed with a left total hip arthroplasty, which is scheduled for 05/01/[address] Stafford discussed the risks and benefits of the surgery at today's visit and all of his questions were answered. He will follow with Dr. Stafford 2 weeks after the surgery. SOPHIA TONY [id number]/[facility] #: [id number] MTDD
--- NOTE | 2017-05-29 08:04 | HP ---
HISTORY AND PHYSICAL: DATE OF ADMISSION/SURGERY: 06/19/17 SURGEON: Pauline Stafford MD.* (DICTATED BY SOPHIA TONY) PROCEDURE: Left total hip arthroplasty. CHIEF COMPLAINT: Left hip pain. HISTORY OF PRESENT ILLNESS: Mr. Dunham is a 51-year-old gentleman with continued complaints of left hip pain. He has failed conservative management and elected to proceed with a left total hip arthroplasty, which is scheduled for 06/19/[address] Stafford. PAST MEDICAL HISTORY: ADHD, hypertension, hypothyroidism, asthma, GERD, and bipolar disorder. PAST SURGICAL HISTORY: Hernia repair, priapism surgery, right total hip arthroplasty and cholecystectomy. CURRENT MEDICATIONS: 1. Oxycodone 10 mg as needed. 2. Ventolin inhaler. 3. Adderall 25 mg daily. 4. Vitamin D. 5. Diclofenac 50 mg twice a day as needed. 6. Levothyroxine 75 mcg daily. 7. Propranolol 20 mg twice a day. 8. Lisinopril 40 mg daily. 9. Clonazepam 0.5 mg in the morning and 2 mg at bedtime. 10. Lyrica 75 mg twice a day. ALLERGIES: TRAZODONE. FAMILY HISTORY: Diabetes. SOCIAL HISTORY: This is a 51-year-old gentleman, who lives with his . He does not smoke. REVIEW OF SYSTEMS: A complete 14-point review of systems was reviewed with the patient. It was positive for GERD, hypothyroidism and asthma. PHYSICAL EXAMINATION GENERAL: He is well developed, well nourished, in no acute distress. VITAL SIGNS: He stands 6 feet tall, weighs 225 pounds. His blood pressure 138/ 82, his heart rate is 76. HEENT: Normocephalic, atraumatic. NECK: Supple. No palpable lymph nodes. PULMONARY: Lungs are clear to auscultation bilaterally. CARDIO: Regular rate and rhythm. Strong S1 and S2. ABDOMEN: Soft, nontender, nondistended. NEUROLOGIC: He is alert and oriented x3. Cranial nerves II through XII are intact. MUSCULOSKELETAL: Left lower extremity, the skin is intact. There are no open wounds or abrasions. He walks with an antalgic-type gait favoring his left hip. He has decreased internal and external rotation of the left hip. He has 2 + dorsalis pedis pulses, intact sensation. His lower extremity muscular group strengths are intact at 5/5. ASSESSMENT AND PLAN: Mr. Dunham is a 51-year-old gentleman with complaints of left hip pain secondary to end-stage osteoarthritis. He has failed conservative management and elected to proceed with a left total hip arthroplasty which is scheduled for 06/19/[address] Stafford discussed the risks and benefits of the surgery at today's visit and all of his questions were answered. He will follow up with Dr. Stafford 2 weeks after the surgery. SOPHIA TONY [id number]/[facility] #: [id number] ARY
[2017-06-18] MEDS ORDERED: Buffered Lidocaine 0.9% SYRIN* 5 ML/SYR SYRINGE INTRADERM ONE (13:05)
[2017-06-19] MEDS ORDERED: Levalbuterol 0.63MG/3ML NEB* UNIT OF USE INH ONE ×2 (00:01→11:22)
[2017-06-19] MEDS ORDERED: Famotidine IV* 10 MG/ML 2 ML (20 mg) IV ONE (06:00)
[2017-06-19] MEDS ORDERED: Dexamethasone IV* 4 MG/ML 1 ML (4 MG) IV SLOW PU ONE (06:00)
[2017-06-19] MEDS ORDERED: Famotidine IV* 10 MG/ML 2 ML (20 mg) ONE (11:20)
[2017-06-19] MEDS ORDERED: Dexamethasone IV* 4 MG/ML 1 ML (4 MG) ONE (11:20)
[2017-06-19] MEDS ORDERED: ceFAZolin 2 GM PREMIX (*) 2 GM/50 ML BAG IVPB ONE (11:20)
[2017-06-19] MEDS ORDERED: fentaNYL* 50 MCG/ML 2 ML VIAL (100 MCG VIAL) ONE ×3 (11:35→18:42)
[2017-06-19] MEDS ORDERED: Bupivacaine 0.5% SDV PF* 10-30ML VIAL ONE (11:35)
[2017-06-19] MEDS ORDERED: Midazolam* 1 MG/ML 10 ML VIAL (10 MG) ONE (11:35)
[2017-06-19] MEDS ORDERED: Ondansetron INJ* 2 MG/ML VIAL ONE (11:35)
[2017-06-19] MEDS ORDERED: ROPIVACAINE 5 MG/ML 30 ML BTL (0.5%) ONE ×2 (11:35→12:36)
[2017-06-19] MEDS ORDERED: Propofol* 10 MG/ML 20 ML BTL IV PUSH ONE ×2 (11:35→15:54)
[2017-06-19] MEDS ORDERED: Gabapentin CAP(*) 300 MG PO ONE (12:40)
[2017-06-19] MEDS ORDERED: celeCOXIB CAP* 200 MG PO ONE (12:40)
[2017-06-19] MEDS ORDERED: Gabapentin CAP(*) 300 MG ONE (12:40)
[2017-06-19] MEDS ORDERED: celeCOXIB CAP* 100 MG ONE (12:40)
[2017-06-19] MEDS: ceFAZolin 1 GM in Dextrose (*) 1 GM/50 ML BAG IVPB SCH ×2 (13:29→21:22)
[2017-06-19] MEDS ORDERED: Acetaminophen TAB* 325 MG PO PRN (14:04)
[2017-06-19] MEDS ORDERED: Magnesium Hydroxide LIQ* 30 ML UDC PO PRN (14:04)
[2017-06-19] MEDS ORDERED: diPHENhydraMINE IV* 50 MG/ML 1 ml VIAL (BENADRYL) IV PRN (14:04)
[2017-06-19] MEDS ORDERED: Polyethylene Glycol 3350* 17 GM PACKET PO PRN (14:04)
[2017-06-19] MEDS ORDERED: Ondansetron INJ* 2 MG/ML VIAL IV PRN ×2 (14:04→14:15)
[2017-06-19] MEDS ORDERED: oxyCODONE/Acetamin 5/325 MG* TAB PO PRN (14:04)
[2017-06-19] MEDS ORDERED: Cyclobenzaprine TAB* 10 MG PO PRN (14:04)
[2017-06-19] MEDS ORDERED: Morphine INJ* 2 MG/ML 1 ML CARPUJECT IV PRN (14:04)
[2017-06-19] MEDS ORDERED: Bisacodyl SUPP* 10 MG SUPP PR PRN (14:04)
[2017-06-19] MEDS ORDERED: Ondansetron TAB* 4 MG PO PRN (14:04)
[2017-06-19] MEDS ORDERED: Albuterol HFA INHALER* 8 gm MDI INH PRN (14:10)
[2017-06-19] MEDS ORDERED: HYDROmorphone INJ* 1 MG/ML CARPUJECT SYRINGE IV PRN (14:15)
[2017-06-19] MEDS ORDERED: DiMENhydriNATE IV* 50 MG/ML VIAL IV PUSH PRN (14:15)
[2017-06-19] MEDS ORDERED: Naloxone* 0.4 MG/ML 1 ML VIAL IV PRN (14:15)
--- NOTE | 2017-06-19 15:34 | RAD ---
Indication: Left hip replacement. Single view of the pelvis and upper leg demonstrates left femoral reamer in place. Acetabular cup is in place. IMPRESSION: Intraoperative control films for left hip replacement.
--- NOTE | 2017-06-19 16:31 | RAD ---
INDICATION: Left hip arthroplasty COMPARISON: April 21, 2017 TECHNIQUE: Portable AP and crosstable lateral imaging left hip was performed FINDINGS: There is interval left hip arthroplasty. Both femoral and acetabular components appear well seated. There are soft tissue changes compatible with recent surgery. IMPRESSION: LEFT HIP ARTHROPLASTY.
[2017-06-19] MEDS: fentaNYL* 50 MCG/ML 2 ML VIAL (100 MCG VIAL) IV PRN ×4 (16:58→18:50)
[2017-06-19] MEDS ORDERED: HYDROmorphone INJ* 2 MG/ML CARPUJECT SYRINGE ONE (17:05)
[2017-06-19] MEDS: oxyCODONE/Acetamin 5/325 MG* TAB PO PRN (20:50)
[2017-06-19] MEDS ORDERED: Warfarin TAB(*) 6 MG PO ONE (21:00)
[2017-06-19] MEDS ORDERED: clonazePAM TAB(*) 1 MG PO SCH (21:00)
[2017-06-19] MEDS: Docusate CAP* 100 MG PO SCH (21:22)
[2017-06-19] MEDS: Pregabalin CAP(*) 25 MG PO SCH (21:22)
[2017-06-19] MEDS: Magnesium Hydroxide LIQ* 30 ML UDC PO SCH (21:22)
[2017-06-19] MEDS: Propranolol TAB* 20 MG PO SCH (21:26)
--- NOTE | 2017-06-19 21:42 | CONS ---
CC: Hanna Pappas NP; Dr. Stafford * CONSULTATION REPORT: DATE OF CONSULT: 06/19/17 PRIMARY CARE PROVIDER: Hanna Pappas NP with [facility]. REASON FOR CONSULTATION: Medical management of patient with history of hypertension, status post total hip arthroplasty. CHIEF COMPLAINT: Patient currently feels well, has no complaints. HISTORY OF PRESENT ILLNESS: Patient is a 51-year-old male with history of an elective total hip replacement on the right in November of 2016, who now underwent a left total hip replacement performed by Dr. Stafford. Patient is doing well postoperatively, but his history of hypertension, PTSD, ADD as well as hypothyroidism with management of which Medicine was consulted. PAST MEDICAL HISTORY: 1. History of alcoholism in remission. Patient's last alcoholic beverage was 5 years ago. 2. History of ADHD. 3. Hypertension. 4. Hypothyroidism. 5. History of asthma. 6. Gastroesophageal reflux disease. 7. History of bipolar disease. 8. History of PTSD. 9. Status post hernia repair. 10. History of priapism surgery. 11. History of right total hip arthroplasty in November of 2016 and left total hip arthroplasty today. 12. History of cholecystectomy. MEDICATIONS AT HOME: Include: 1. Clonazepam 2 mg at bedtime, 0.5 mg q.a.m. 2. Seroquel XR 150 mg at bedtime. 3. Propranolol 20 mg b.i.d. 4. Lyrica 75 mg b.i.d. 5. Oxycodone 10 mg b.i.d. p.r.n. 6. Lisinopril 20 mg daily. 7. Levothyroxine 75 mcg daily. 8. Hydrochlorothiazide 25 mg daily. 9. Diclofenac 50 mg b.i.d. 10. Vitamin D3 1000 units daily. 11. Adderall 50 mg in the morning. 12. Albuterol inhaler on a p.r.n. basis. ALLERGIES: Include TRAZODONE. FAMILY HISTORY: Positive for diabetes. SOCIAL HISTORY: The patient lives at home with his . He has two young children 6 and 7 years old. He stopped smoking two years ago and he quit drinking alcohol 5 years ago. He is a recovering alcoholic. His surrogate decision making person is his . 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 REVIEW OF SYSTEMS: Please see history of present illness. Apart from problems with left hip pain, all the remaining 12 systems reviewed with the patient and were otherwise negative. PHYSICAL EXAM: Blood pressure of 131/94, heart rate of 74 and regular, respiratory rate 14, oxygen saturation 97% on room air, temperature 97.5. General: This is a very pleasant 51-year-old male who is in no acute distress. Alert, awake, oriented x3. HEENT: Head: Atraumatic, normocephalic. Eyes: Pupils are equal, reactive to light and accommodation. Oropharynx: Clear. Mucosa moist. Neck: Supple. No JVD. No bruits bilaterally. Cardiovascular: Regular rate and rhythm. No murmur. Respiratory: Clear to auscultation bilaterally. Abdomen: Soft, nontender. Bowel sounds are present in all 4 quadrants. Extremities: There is minimal left thigh edema postoperatively, there is no ankle edema bilaterally. There is no clubbing or cyanosis. Pulses are +2 bilaterally. On evaluation of the skin, patient's left hip incision was covered with postsurgical dressings. They were not removed. Otherwise no ecchymotic areas or rashes noted. Neuro Evaluation: Speech clear. Cranial nerves II through XII grossly intact. Motor strength is 5/5 bilaterally. Psychiatric Evaluation: Oriented x3 with no evidence of anxiety or depression. DIAGNOSTIC STUDIES/LAB DATA: Laboratory data: Currently not obtained. ASSESSMENT AND PLAN: 1. In regards to postoperative management of patient's left hip surgery, it is going to be as per Dr. Stafford's service. 2. For patient's history of attention deficit disorder, the patient is going to be continued on Adderall as previously taken. 3. For his hypothyroidism, levothyroxine is going to be continued. 4. For hypertension, his high blood pressure medications are going to be restarted in the morning. 5. For history of anxiety, depression, and bipolar disease, Seroquel and Klonopin are going to be continued. 6. For DVT prophylaxis, patient was already placed on Coumadin and Lovenox by primary service. TIME SPENT: Approximately 55 minutes was spent on the consultation of this patient; more than half that time was spent face to face with the patient during the interview and physical exam. Thank you very much for allowing to see your patient in consultation. We will follow on daily basis. [id number]/[facility] #: [id number] [facility]
[2017-06-19] MEDS: oxyCODONE TAB* 5 MG TAB PO PRN (23:01)
[2017-06-20] MEDS: oxyCODONE/Acetamin 5/325 MG* TAB PO PRN ×3 (01:51→12:57)
[2017-06-20] MEDS: oxyCODONE TAB* 5 MG TAB PO PRN ×3 (03:16→15:09)
[2017-06-20] MEDS: ceFAZolin 1 GM in Dextrose (*) 1 GM/50 ML BAG IVPB SCH ×2 (05:24→14:08)
[2017-06-20] MEDS ORDERED: Levothyroxine TAB* 75 MCG TAB PO SCH (06:00)
[2017-06-20 06:04] LABS: Hematocrit 32 % (42-52); Hemoglobin 10.4 g/dl (14.0-18.0); Mean Platelet Volume 7.9 um3 (7.4-10.4); Platelet Count 269 10^3/ul (150-450)
[2017-06-20 06:09] LABS: INR 0.97 (0.77-1.02)
[2017-06-20 06:20] LABS: EGFR Non-African American 76.7 (>60)
[2017-06-20] MEDS: Pregabalin CAP(*) 25 MG PO SCH (08:15)
[2017-06-20] MEDS: Magnesium Hydroxide LIQ* 30 ML UDC PO SCH (08:16)
[2017-06-20] MEDS: Docusate CAP* 100 MG PO SCH (08:16)
[2017-06-20] MEDS ORDERED: Hydrochlorothiazide TAB* 25 MG PO SCH (09:00)
[2017-06-20] MEDS ORDERED: Amphetamine MIXED SALT TAB* 10 MG TAB PO SCH (09:00)
[2017-06-20] MEDS ORDERED: clonazePAM TAB(*) 0.5 MG PO SCH (09:00)
[2017-06-20] MEDS ORDERED: Lisinopril TAB* 10 MG PO SCH (09:00)
[2017-06-20] MEDS: Propranolol TAB* 20 MG PO SCH (09:51)
[2017-06-20] MEDS ORDERED: Enoxaparin(*) 40 MG/0.4 ML SYR SUBCUT SCH (12:00)
[2017-06-20 12:53] VITALS: BP 124/74
--- NOTE | 2017-06-20 13:02 | PN ---
Progress Note - Progress Note Date of Service: 06/20/17 SOAP: Subjective: 51 y/o male s/p L KENNEDY by DR. Stafford 06/19/2017. Patient reports feeling well, would like d/c to home today, refusing VNS, home PT as feels has understanding of PT and does not feel they are helpful. Working well with PT, pain well controlled. VSS, afebrile overnight. Objective: General- Well appearing, NAD, AO SItting in chair, dressing. MSK- L LE- DF/PF = b/l, PT 2+, negative homans sign b/l, SITLT, DRessing over L hip intact, no induration, erythema noted. Vital Signs Temp 98.2 F 06/20/17 11:42 Pulse 86 06/20/17 11:42 Resp 18 06/20/17 12:57 BP 124/74 06/20/17 11:42 Pulse Ox 99 06/20/17 11:42 Intake & Output 06/19/17 06/20/17 06/20/17 18:59 06:59 18:59 Intake Total 9895 299 3771 Output Total 1250 700 700 Balance 350 50 405 Weight 97.976 kg Intake: IV Fluids 1600 995 LR 1600 995 IVPB 110 ABX - CEFAZOLIN 110 Oral 750 Output: Urine 0 700 Morales 1250 700 Assessment: Stable 51 y/o male s/p L KENNEDY by DR. Stafford 06/19/2017. Plan: - DVT prophylaxis- lovenox in house, Aspirin 325mg PO BID at home - Continue PT/ OT at home, start outpatient PT after follow up with DR. Stafford. - Follow up with Dr. Stafford within 10-14 days - H&H - STable - post-op IV ABX - Completed. - D/C today after PT if completed well. Acetaminophen (Tylenol Tab*) 650 mg PO Q4H PRN PRN Reason: PAIN OR TEMPERATURE Albuterol (Ventolin Hfa Inhaler*) 2 puff INH Q4H PRN PRN Reason: SHORTNESS OF BREATH Amphetamine/Dextroamphetamine (Adderall Tab*) 50 mg PO QAM [facility] Last Admin: 06/20/17 08:16 Dose: 50 mg Bisacodyl (Dulcolax Supp*) 10 mg AL DAILY PRN PRN Reason: constipation Clonazepam (Klonopin Tab(*)) 2 mg PO BEDTIME [facility] Last Admin: 06/19/17 21:22 Dose: 2 mg Clonazepam (Klonopin Tab(*)) 0.5 mg PO QAM [facility] Last Admin: 06/20/17 09:51 Dose: 0.5 mg Cyclobenzaprine HCl (Flexeril Tab*) 10 mg PO TID PRN PRN Reason: SPASMS Diphenhydramine HCl (Benadryl Iv*) 12.5 mg IV Q6H PRN PRN Reason: PRURITIS Docusate Sodium (Colace Cap*) 100 mg PO BID [facility] Last Admin: 06/20/17 08:16 Dose: 100 mg Enoxaparin Sodium (Lovenox(*)) 40 mg SUBCUT Q24H [facility] Last Admin: 06/20/17 12:43 Dose: 40 mg Cefazolin Sodium/Dextrose (Kefzol 1 Gm In Dextrose Duplex (*)) 1 gm in 50 mls @ 200 mls/hr IVPB Q8H [facility] Stop: 06/20/17 13:44 Last Admin: 06/20/17 05:24 Dose: 200 mls/hr Lactated Ringer's (Lactated Ringers 1000 Ml Bag*) 1,000 mls @ 100 mls/hr IV PER RATE [facility] Last Admin: 06/19/17 21:22 Dose: 100 mls/hr Lactulose (Lactulose*) 30 ml PO Q6H PRN PRN Reason: constipation Levothyroxine Sodium (Synthroid Tab*) 75 mcg PO DAILY@0600 [facility] Last Admin: 06/20/17 05:23 Dose: 75 mcg Magnesium Hydroxide (Milk Of Magnesia Liq*) 30 ml PO BID [facility] Last Admin: 06/20/17 08:16 Dose: 30 ml Magnesium Hydroxide (Milk Of Magnesia Liq*) 30 ml PO Q6H PRN PRN Reason: constipation Morphine Sulfate (Morphine Inj (Syringe)*) 2 mg IV Q2H PRN PRN Reason: PAIN Ondansetron HCl (Zofran Inj*) 4 mg IV Q6H PRN PRN Reason: nausea Ondansetron HCl (Zofran Tab*) 4 mg PO Q6H PRN PRN Reason: NAUSEA Oxycodone HCl (Roxycodone Tab*) 10 mg PO Q4H PRN PRN Reason: SEVERE PAIN Last Admin: 06/20/17 10:10 Dose: 10 mg Oxycodone/Acetaminophen (Percocet 5/325 Tab*) 2 tab PO Q4H PRN PRN Reason: PAIN Last Admin: 06/20/17 12:57 Dose: 2 tab Oxycodone/Acetaminophen (Percocet 5/325 Tab*) 1 tab PO Q4H PRN PRN Reason: PAIN Pharmacy Profile Note (Coumadin Daily Reminder*) 1 note FOLLOW UP 1700 [facility] Polyethylene Glycol/Electrolytes (Miralax*) 17 gm PO DAILY PRN PRN Reason: Constipation Pregabalin (Lyrica Cap(*)) 75 mg PO BID [facility] Last Admin: 06/20/17 08:15 Dose: 75 mg Propranolol HCl (Inderal Tab*) 20 mg PO BID [facility] Last Admin: 06/20/17 09:51 Dose: 20 mg
--- NOTE | 2017-06-20 16:24 | OP ---
OPERATIVE NOTE: DATE OF OPERATION: 06/19/17 DATE OF : 63 ATTENDING SURGEON: Pauline Stafford MD SHIP RIGGER APPRENTICE: SOPHIA Porter Mr. Patel did help throughout the procedure with preparation of the leg, wound retraction, manipulat ion of the hip, and wound closure. ANESTHESIOLOGIST: Dr. Whitfield. ANESTHESIA: Spinal. 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 POST-OP DIAGNOSIS: Severe end-stage degenerative osteoarthritis of the left hip joint secondary to o steonecrosis of the femoral head. OPERATIVE PROCEDURE: Left total hip arthroplasty. COMPLICATIONS: None. ESTIMATED BLOOD LOSS: 300 cc. SPECIMEN: Femoral head and acetabular reaming sent to pathology. HARDWARE USED: This is uncemented Kelsey total hip hardware. For the cup, a 60F Tritanium cluster hole shell. A single Torx 25-mm screw. For the liner, a 40F Trident X3 0-degree polyethylene liner. For the stem, Accolade TMZF size 5 with a 127-degree neck. For the head, Biolox delta V40 ceramic femoral head, 40 -2.5. BRIEF HISTORY/INDICATION: Mr. Dunham is a 51-year-old gentleman with years of increasingly severe left hip pain. 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 He developed severe radiographic osteoarthritis and severe pain on physical exam. He failed conservative treatment with antiinflammatories, pain medication, and physi lexy therapy. Due to continued pain and decreased quality of life, he elected to undergo a left total hip arthroplasty. Informed consent was obtained from the patient. He understood the risks of the s urgery included, but were not limited to bleeding, infection, damage to nearby structures, continued pain, need for further surgery, intraoperative fracture, nerve palsy, hardware failure or loosening, dislocation, leg length discrepancies, stroke, heart attack, blood clot, and . He wished to proc eed. INTRAOPERATIVE FINDINGS: Intraoperatively, the patient had significantly deformed femoral head with collapse of the superior bone. He had full-thickness loss of cartilage in the acetabulum with signif icant osteophyte formation. DESCRIPTION OF PROCEDURE: Mr. Dunham was identified in the preanesthesia unit. His left lower extr emity was marked as the correct operative site. Informed consent was signed and placed in the chart. The patient was taken to the operating room and placed under spinal anesthesia. A Morales catheter w as placed. The patient was placed in the right lateral decubitus position on the peg board. All bon y prominences were well padded. Left lower extremity was prepped and draped in the usual sterile fas hion. Preop time-out was made to correctly identify the patient, side, and site. Appropriate periop erative antibiotics were given within 1 hour of incision. A standard 14-cm posterior hip incision was made with a 10-blade and carried down to the lateral fasc ia. Lateral fascia was incised in line with the skin incision. Charnley retractor was placed. The p iriformis and conjoint tendons were identified and elevated off the posterolateral femur using electr ocautery. These were tagged with #5 Ethibond. Next, electrocautery was used to make a standard post erolateral capsular flap and this was also tagged with #5 Ethibond. The hip was carefully dislocated . Lesser troch to center of the femoral head measured 62 mm. Oscillating saw was used to make the fe moral neck cut and the femoral head was released. The femur was carefully retracted anteriorly. Long-handle knife was used to sharply remove any labru m from the acetabular rim. The acetabulum was sequentially reamed up to a size 59. 59 reamer achiev ed subchondral bleeding bone bed. 59 trial had excellent fit. Final implant chosen was a Tritanium cluster hole shell 60F. This was impacted into the acetabulum without difficulty. Excellent stabili ty was obtained. Appropriate anteversion and abduction angle were obtained. A single 25-mm screw was placed in the superoposterior quadrant for extra stability. Trident X3 0-degree polyethylene liner 40F was chosen. This was impacted into the acetabulum without difficulty. Stability of the liner wa s checked and rechecked and noted to be stable. Attention was next turned to preparation of the proximal femur. A canal finder was used to enter the proximal femur. Femur was sequentially broached up to a size 5. Size-5 broach had good stability an d appropriate anteversion. A 127 neck trial with a 40 -2.5 head trial was chosen. Lesser troch to c enter of the femoral head measured 63 mm. The hip was reduced and taken through a range of motion. The hip was stable in all positions. There was appropriate soft tissue tension and leg lengths. All trials were removed. Final implant chosen was an Accolade TMZF size 5 with a 127-degree neck. This was impacted into the femoral canal without difficulty. The stem was stable with appropriate anteve rsion. A 40 -2.5 Biolox delta ceramic V40 femoral head was chosen as the final implant and this was impacted onto the femoral neck. The hip was reduced and taken through a range of motion. The hip wa s stable in all positions. The hip was copiously irrigated with sterile saline. Previously tagged t endons and capsules were reapproximated to the posterolateral femur through 2 trochanteric drill hole s. The lateral fascial layer was closed using interrupted #1 Vicryls. The rest of the incision was closed in a layered fashion using 0 and 2-0 Vicryls. Skin was closed using running 3-0 Monocryl sutu re and Dermabond. Sterile Adaptic, 4x4s, and paper tape were used to cover the incision. The patien t's anesthesia was reversed without difficulty. He was taken to the PACU in stable condition. Inten ded weightbearing will be weightbearing as tolerated. Intended DVT prophylaxis will be Coumadin with a Lovenox bridge. [id number]/[facility] #: [id number]
--- NOTE | 2017-06-20 23:25 | DS ---
AMENDED REPORT NOW INCLUDES COSIGNER DESIGNATION - ESIGNED BEFORE ADJUSTMENT DISCHARGE SUMMARY: DATE OF ADMISSION: 06/19/17 DATE OF DISCHARGE: 06/20/17 ATTENDING PHYSICIAN: Dr. Stafford * (DICTATED BY SOPHIA QURESHI) CHIEF COMPLAINT: 1. Left hip pain. 2. ADHD. 3. Hypertension. 4. Hypothyroidism. 5. Asthma. 6. GERD. 7. Bipolar disorder. DISCHARGE DIAGNOSES: 1. Status post left total hip arthroplasty. 2. Attention deficit hyperactivity disorder. 3. Hypertension. 4. Hypothyroidism. 5. Asthma. 6. Gastroesophageal reflux disease. 7. Bipolar disorder. PROCEDURE PERFORMED: Left total hip arthroplasty. CONSULTATIONS: 1. Physical Therapy. 2. Occupational Therapy. BRIEF HISTORY: Mr. Dunham is a very pleasant 51-year-old gentleman with severe end-stage degenerative osteoarthritis of the left hip who failed conservative treatment and elected to undergo a left total hip arthroplasty by Dr. Pauline Stafford on 06/19/17. HOSPITAL COURSE: Mr. Dunham was admitted to [facility] on 06/19/17 , where he underwent a left total hip arthroplasty, which was uncomplicated. Postoperatively, the patient recovered on the surgical short-stay unit. On postoperative day #1, his Morales was removed and he was voiding on his own without difficulty. His pain was controlled with p.o. Percocet and he was restarted on his home medications and advanced to regular diet without difficulty. His labs and vital signs remained stable. He was able to bear weight as tolerated on the left lower extremity and advanced appropriately with physical therapy and occupational therapy. His DVT was managed in house with Lovenox. On postoperative day #1, he was orthopedically and medically stable for discharge to go home with home services. PHYSICAL EXAMINATION: General: Well-appearing, in no acute distress, alert and oriented, resting in a chair comfortably. Vital Signs: Temperature 98.2, pulse 86, respirations 18, blood pressure 124/74, pulse oxygenation 99% on room air. Musculoskeletal: Examination of the left lower extremity shows positive dorsiflexion, plantar flexion that was equal bilaterally with posterior tibial pulse 2+. Negative Homans sign bilaterally. Sensation intact to light touch bilaterally. Dressing over the left hip was intact with no induration or erythema or drainage noted. LABORATORY DATA ON DATE OF DISCHARGE: Include H and H of 10.4 and 32 with INR of 0.97. DISCHARGE MEDICATIONS: 1. Aspirin 325 mg 1 tablet p.o. b.i.d. 2. Albuterol inhaler 2 puffs inhalation q.4 hours p.r.n. 3. Adderall 50 mg p.o. q.a.m. 4. Clonazepam 0.5 mg p.o. q.a.m. 5. Clonazepam 2 mg p.o. q.h.s. 6. Flexeril 10 mg p.o. t.i.d. p.r.n. for muscle spasms. 7. Colace 100 mg p.o. b.i.d. 8. Levothyroxine 75 mcg p.o. q.a.m. 9. Oxycodone 5 mg tablets 1 to 2 tablets every 4 to 6 hours as needed for pain. 10. Lyrica 75 mg p.o. b.i.d. 11. Inderal 20 mg p.o. b.i.d. 12. Tylenol 650 mg p.o. q.4 hours p.r.n. for pain and fever. 13. Vitamin D 1000 International Units p.o. q.a.m. 14. Cymbalta p.o. daily. 15. Diclofenac sodium 50 mg p.o. b.i.d. 16. Hydrochlorothiazide 25 mg p.o. daily. 17. Lisinopril 20 mg p.o. q.a.m. 18. Seroquel 150 mg p.o. q.h.s. CONDITION ON DISCHARGE: Stable. DISCHARGE INSTRUCTIONS: Mr. Dunham is a very pleasant 51-year-old gentleman, postoperative day 1, status post left total hip arthroplasty, which was uncomplicated. He is orthopedically and medically stable for discharge to home. His labs and vital signs are stable. He will restart his home medications. He will take aspirin 325 mg p.o. b.i.d. for DVT prophylaxis. He refused to have [facility] home services or visiting PT as he did not find them useful after his prior hip replacement. He has not set up for outpatient physical therapy at this standpoint, but we will address this with Dr. Stafford at his next clinic visit. He will take oxycodone 5 mg 1 to 2 tablets every 4 to 6 hours as needed for pain control and Colace up to 3 times a day for constipation. He will follow up with Dr. Stafford in approximately 10 days for incision check. He was instructed to go immediately to the ER should he develop pain or shortness of breath, should he develop fever, increasing pain, or redness, he is to call the office immediately. SOPHIA QURESHI [id number]/[facility] #: [id number] [place]
== END 2017-06-20 16:55 | disposition home or self-care (01) | DRG 301 ==
LOC: AA 06-19 11:12 → SSU 06-19 20:10
PROVIDERS: ADMIT Orthopaedic Surgery Adult Reconstructive Orthopaedic Surgery; ATTEND Internal Medicine
PROC: 0SRB04A Replacement of Left Hip Joint with Ceramic on Polyethylene Synthetic Substitute, Uncemented, Open Approach (ICD-10-PCS; principal; 2017-06-17)
DX: M16.12 Unilateral primary osteoarthritis, left hip (principal); M87.9 Osteonecrosis, unspecified; F90.9 Attention-deficit hyperactivity disorder, unspecified type; I10 Essential (primary) hypertension; E03.9 Hypothyroidism, unspecified; J45.909 Unspecified asthma, uncomplicated; K21.9 Gastro-esophageal reflux disease without esophagitis; F31.9 Bipolar disorder, unspecified; Z96.641 Presence of right artificial hip joint; F43.10 Post-traumatic stress disorder, unspecified; F10.21 Alcohol dependence, in remission; F41.9 Anxiety disorder, unspecified; E66.9 Obesity, unspecified; M25.752 Osteophyte, left hip; Z90.49 Acquired absence of other specified parts of digestive tract; Z88.8 Allergy status to other drugs, medicaments and biological substances; Z83.3 Family history of diabetes mellitus; Z87.891 Personal history of nicotine dependence; Z68.28 Body mass index [BMI] 28.0-28.9, adult
CPT/HCPCS: 36415; 80048; 85014; 85018; 85049; 85610; A9270-GY; G8987-GO-CJ; G8988-GO-CI; J0690; J1100; J1170; J1650; J2250; J2405; J2704; J2795; J3010

== ENCOUNTER 2017-04-26 07:46 | Emergency (ER) | payer BC ==
[2017-04-26] MEDS ORDERED: NS 0.9% 1000 ML* 1,000 ML IV ONE (07:57)
[2017-04-26 09:00] LABS: ABS Basophils 0.1 10^3/ul (0-0.2); ABS Eosinophils 0.1 10^3/ul (0-0.6); ABS Lymphocytes 1.8 10^3/ul (1.0-4.8); ABS Neutrophils 13.3 10^3/ul (1.5-7.7); ABS Nucleated RBC 0 10^3/ul; Eosinophil % 0.5 % (0-6); Hematocrit 39 % (42-52); Hemoglobin 12.7 g/dl (14.0-18.0); Mean Corpuscular HGB Conc 33 g/dl (31-36); Mean Corpuscular Hemoglobin 28 pg (27-31); Mean Corpuscular Volume 86 fL (80-94); Mean Platelet Volume 7 um3 (7.4-10.4); Nucleated Red Blood Cells % 0; Platelet Count 491 10^3/ul (150-450); Red Cell Distribution Width 15 % (10.5-15); White Blood Count 16.3 10^3/ul (3.5-10.8)
[2017-04-26] MEDS ORDERED: Morphine INJ* 4 MG/ML 1 ML CARPUJECT IV ONE ×2 (09:12→11:12)
[2017-04-26] MEDS ORDERED: Piperacillin/Tazobac ADVAN(*) 3.375 GM in NS 0.9% 100 ML* 100 ML IVPB ONE (09:12)
[2017-04-26 09:14] LABS: EGFR Non-African American 53.2 (>60)
--- NOTE | 2017-04-26 09:18 | RAD ---
Indication: RIGHT upper quadrant abdominal pain. Comparison: Abdomen radiograph of the same date. Technique: RIGHT upper quadrant ultrasound. Report: Appropriate direction flow documented in the portal and hepatic veins. 15.1 cm liver is echogenic in echogenicity. Negative for focal hepatic lesions. Negative for intrahepatic biliary dilatation. 10.5 mm diameter common bile duct at the mid segment. The distal duct is not conspicuous with acoustic window limited due to bowel gas. No stone evident within the visualized common bile duct. The gallbladder is packed with stones and remarkable for wall thickening up to 12 mm. Small volume of pericholecystic fluid. Generalized RIGHT upper quadrant pain without focal sonographic Vieyra's sign. The pancreas is partially obscured due to bowel gas with the visualized pancreas is echogenic consistent with partial fatty replacement. Negative for ascites. 12.7 cm RIGHT kidney is unremarkable. IMPRESSION: The constellation of findings is concerning for acute calculus cholecystitis. Mild extrahepatic biliary dilatation. Assessment of the distal common bile duct is limited with the distal common bile duct stone not excluded.
--- NOTE | 2017-04-26 09:21 | RAD ---
Indication: Abdominal pain. Diagnosed with infected gallbladder 5 weeks ago. Comparison: RIGHT upper quadrant ultrasound of the same date. Technique: Supine and upright views of the abdomen. Report: No radiographic evidence for free air. Unremarkable bowel gas pattern. Moderate stool throughout the colon. Negative for suspicious calcifications or mass effect. RIGHT hip prosthesis. Advanced osteoarthritis of the LEFT hip consistent with Kellgren and Shabbir grade 4. IMPRESSION: Noncontributory abdomen radiographs. Ultrasound of the same date with findings suspicious for acute calculus cholecystitis.
[2017-04-26] MEDS ORDERED: Morphine INJ* 10 MG/ML 1 ML CARPUJECT IV ONE (10:00)
--- NOTE | 2017-04-26 10:17 | ED ---
Bj Ryan Thomas, scribed for Oneil Castañeda MD on 04/26/17 at 0834 . Abdominal Pain/Male - HPI Summary HPI Summary: The patient is a 51 year old male presenting to the emergency department complaining of RUQ abdominal pain that began last night after he ate peanut butter and bananas. The pain is a severe and it is constant. The patient has treated the symptoms with nothing prior to arrival. The patient has prior unspecified gallbladder disease. The patient complains of right hip pain and reports he is seeking a hip replacement. - History of Current Complaint Chief Complaint: EDAbdPain Stated Complaint: ABD PAIN Time Seen by Provider: 04/26/17 07:50 Hx Obtained From: Patient Onset/Duration: Lasting Hours - onset last night, Still Present Timing: Constant Severity Currently: Severe Pain Intensity: 10 Pain Scale Used: 0-10 Numeric Location: Discrete At: RUQ Alleviating Factor(s): Nothing Associated Signs And Symptoms: Positive: Other - Right hip pain - Allergies/Home Medications Allergies/Adverse Reactions: Allergies Allergy/AdvReac Type Severity Reaction Status Date / Time trazodone Allergy Severe See Comment Verified 04/26/17 09:30 PMH/Surg Hx/FS Hx/Imm Hx Endocrine/Hematology History: Reports: Hx Thyroid Disease - hypo, Hx Anemia - AFTER SURGERIES - NEEDED TRANSFUSIONS Cardiovascular History: Reports: Hx Hypertension Respiratory History: Reports: Hx Asthma - EXERSIZE INDUCED GI History: Reports: Hx Gall Bladder Disease Musculoskeletal History: Reports: Hx Arthritis, Other Musculoskeletal History - AVASCULAR NECROSIS Sensory History: Reports: Hx Contacts or Glasses Denies: Hx Hearing Aid Opthamlomology History: Reports: Hx Contacts or Glasses Psychiatric History: Reports: Hx Anxiety, Hx Attention Deficit Hyperactivity Disorder, Hx Depression - Cancer History Hx Chemotherapy: No - Surgical History Surgery Procedure, Year, and Place: hernia, priaprisim surgery(to correct an errection lasting > 4 hrs) Hx Anesthesia Reactions: Yes - woke up 2x during umbilical hernia repair - Immunization History Date of Influenza Vaccine: 12/31 Infectious Disease History: Unable to Obtain/Confirm Infectious Disease History: Reports: Hx Shingles Denies: Traveled Outside the [place] in Last 30 Days - Family History Known Family History: Positive: Hypertension - father and son - Social History Alcohol Use: None Substance Use Type: Reports: None Substance Use Comment - Amount & Last Used: vapes daily Hx Tobacco Use: Yes Smoking Status (MU): Former Smoker Type: Cigarettes, eCigarettes Amount Used/How Often: smoked for 25 years 1/2ppd- uses a vape daily Review of Systems Negative: Fever Positive: Abdominal Pain - RUQ Positive: Other - Right hip pain All Other Systems Reviewed And Are Negative: Yes Physical Exam - Summary Physical Exam Summary: VITAL SIGNS: Reviewed. GENERAL: Patient is a well-developed and nourished male who is lying comfortable in the stretcher. Patient is not in any acute respiratory distress. HEAD AND FACE: Normocephalic and atraumatic. EYES: PERRLA, EOMI x 2, No injected conjunctiva. EARS: Hearing grossly intact. Ear canals and tympanic membranes are WNL. MOUTH: Oropharynx within normal limits. Dry oral mucosa. NECK: Supple, trachea is midline, no adenopathy, no JVD. CHEST: Symmetric, no tenderness at palpation LUNGS: Clear to auscultation bilaterally. No wheezing or crackles. CVS: RRR, S1 and S2 present, no murmurs or gallops appreciated. ABDOMEN: Soft. Diffuse abdominal tenderness, mostly in the RUQ. No signs of distention. Positive bowel sounds. No rebound no guarding, and no masses palpated. No abdominal bruit or pulsations. EXTREMITIES: FROM in all major joints, no edema, no cyanosis or clubbing. NEURO: Alert and oriented x 3. No acute neurological deficits. Speech is normal. SKIN: Dry and warm Triage Information Reviewed: Yes Vital Signs On Initial Exam: Initial Vitals Temp Pulse Resp BP Pulse Ox 98.6 F 90 18 120/86 98 04/26/17 07:51 04/26/17 07:51 04/26/17 07:51 04/26/17 07:51 04/26/17 07:51 Vital Signs Reviewed: Yes Diagnostics - Vital Signs Vital Signs Temp Pulse Resp BP Pulse Ox 04/26/17 08:00 80 12 97 04/26/17 07:58 80 96 04/26/17 07:51 98.6 F 90 18 120/86 98 - Laboratory Lab Results: Lab Results 04/26/17 04/26/17 04/26/17 Range/Units 08:40 08:40 08:40 WBC 16.3 H (3.5-10.8) 10^3/ul RBC 4.50 (4.0-5.4) 10^6/ul Hgb 12.7 L (14.0-18.0) g/dl Hct 39 L (42-52) % MCV 86 (80-94) fL MCH 28 (27-31) pg MCHC 33 (31-36) g/dl RDW 15 (10.5-15) % Plt Count 491 H D (150-450) 10^3/ul MPV 7 L (7.4-10.4) um3 Neut % (Auto) 81.8 (38-83) % Lymph % (Auto) 11.0 L (25-47) % [place] % (Auto) 6.0 (1-9) % Eos % (Auto) 0.5 (0-6) % Baso % (Auto) 0.7 (0-2) % Absolute Neuts (auto) 13.3 H (1.5-7.7) 10^3/ul Absolute Lymphs (auto) 1.8 (1.0-4.8) 10^3/ul Absolute Monos (auto) 1.0 H (0-0.8) 10^3/ul Absolute Eos (auto) 0.1 (0-0.6) 10^3/ul Absolute Basos (auto) 0.1 (0-0.2) 10^3/ul Absolute Nucleated RBC 0 10^3/ul Nucleated RBC % 0 INR (Anticoag Therapy) (0.77-1.02) APTT (26.0-36.3) seconds Sodium 135 (133-145) mmol/L Potassium 3.5 (3.5-5.0) mmol/L Chloride 96 L (101-111) mmol/L Carbon Dioxide 31 (22-32) mmol/L Anion Gap 8 (2-11) mmol/L BUN 16 (6-24) mg/dL Creatinine 1.40 H (0.67-1.17) mg/dL Est GFR ( Amer) 68.4 (>60) Est GFR (Non-Af Amer) 53.2 (>60) BUN/Creatinine Ratio 11.4 (8-20) Glucose 149 H (70-100) mg/dL Lactic Acid 0.9 (0.5-2.0) mmol/L Calcium 9.9 (8.6-10.3) mg/dL Magnesium 1.8 L (1.9-2.7) mg/dL Total Bilirubin 3.50 H (0.2-1.0) mg/dL AST 365 H (13-39) U/L ALT 133 H (7-52) U/L Alkaline Phosphatase 602 H (34-104) U/L Troponin I 0.03 (<0.04) ng/mL C-Reactive Protein 55.02 H (< 5.00) mg/L B-Natriuretic Peptide ( - 100) pg/mL Total Protein 8.1 (6.4-8.9) g/dL Albumin 3.8 (3.2-5.2) g/dL Globulin 4.3 H (2-4) g/dL Albumin/Globulin Ratio 0.9 L (1-3) Amylase 1320 H (29-103) U/L Lipase 3711 H (11.0-82.0) U/L 04/26/17 04/26/17 Range/Units 08:40 08:40 WBC (3.5-10.8) 10^3/ul RBC (4.0-5.4) 10^6/ul Hgb (14.0-18.0) g/dl Hct (42-52) % MCV (80-94) fL MCH (27-31) pg MCHC (31-36) g/dl RDW (10.5-15) % Plt Count (150-450) 10^3/ul MPV (7.4-10.4) um3 Neut % (Auto) (38-83) % Lymph % (Auto) (25-47) % [place] % (Auto) (1-9) % Eos % (Auto) (0-6) % Baso % (Auto) (0-2) % Absolute Neuts (auto) (1.5-7.7) 10^3/ul Absolute Lymphs (auto) (1.0-4.8) 10^3/ul Absolute Monos (auto) (0-0.8) 10^3/ul Absolute Eos (auto) (0-0.6) 10^3/ul Absolute Basos (auto) (0-0.2) 10^3/ul Absolute Nucleated RBC 10^3/ul Nucleated RBC % INR (Anticoag Therapy) 1.00 (0.77-1.02) APTT 29.2 (26.0-36.3) seconds Sodium (133-145) mmol/L Potassium (3.5-5.0) mmol/L Chloride (101-111) mmol/L Carbon Dioxide (22-32) mmol/L Anion Gap (2-11) mmol/L BUN (6-24) mg/dL Creatinine (0.67-1.17) mg/dL Est GFR ( Amer) (>60) Est GFR (Non-Af Amer) (>60) BUN/Creatinine Ratio (8-20) Glucose (70-100) mg/dL Lactic Acid (0.5-2.0) mmol/L Calcium (8.6-10.3) mg/dL Magnesium (1.9-2.7) mg/dL Total Bilirubin (0.2-1.0) mg/dL AST (13-39) U/L ALT (7-52) U/L Alkaline Phosphatase (34-104) U/L Troponin I (<0.04) ng/mL C-Reactive Protein (< 5.00) mg/L B-Natriuretic Peptide 54 ( - 100) pg/mL Total Protein (6.4-8.9) g/dL Albumin (3.2-5.2) g/dL Globulin (2-4) g/dL Albumin/Globulin Ratio (1-3) Amylase (29-103) U/L Lipase (11.0-82.0) U/L Result Diagrams: 04/26/17 08:40 04/26/17 08:40 Lab Statement: Any lab studies that have been ordered have been reviewed, and results considered in the medical decision making process. - Radiology XR Abdomen Xray Interpretation: Positive (See Comments) - Noncontributory abdomen radiographs. Ultrasound of the same date with findings suspicious for acute calculus cholecystitis. Dr. Castañeda has reviewed this report. Radiology Interpretation Completed By: Radiologist - EKG 08:14 Cardiac Rate: NL EKG Rhythm: Sinus Rhythm - at 82 BPM EKG Interpretation: No ST elevations. - Additional Comments Diagnostic Additional Comments: Ultrasound Gallbladder. Interpreted by radiologist. The constellation of findings is concerning for acute calculus cholecystitis. Mild extrahepatic biliary dilatation. Assessment of the distal common bile duct is limited with the distal common bile duct stone not excluded. Dr. Castañeda has reviewed this report. Abdominal Pain Fem Course/Dx - Course Assessment/Plan: The patient is a 51 year old male presenting to the emergency department complaining of RUQ abdominal pain that began last night after he ate peanut butter and bananas. The pain is a severe and it is constant. The patient has treated the symptoms with nothing prior to arrival. The patient has prior unspecified gallbladder disease. The patient complains of right hip pain and reports he is seeking a hip replacement. Test results show a WBC 16.3, a slight anemia, creatinine 1.40, magnesium 1.8, total bilirubin 3.5, AST 365, ALT 13, AlkPhos 602, CRP 55, Amylase 1320. The lipase 3711. The lab says they had to dilute the sample three times and are still unable to get results. Ultrasound Gallbladder shows The constellation of findings is concerning for acute calculus cholecystitis. Mild extrahepatic biliary dilatation. Assessment of the distal common bile duct is limited. with the distal common bile duct stone not excluded. XR Abdomen shows Noncontributory abdomen radiographs. Ultrasound of the same date with findings suspicious for acute calculus cholecystitis. In the ED course, the patient was given IV fluids, Zofran and morphine for the pain. He was started on Zosyn. I discussed the case with Dr. Munoz, and since there is no GI coverage, he recommends transfer to [facility]. I discussed the case with Dr. Carlisle, who accepts the patient for admission. The patient continues to be hemodynamically stable and alert and oriented x3. - Diagnoses Differential Diagnosis/HQI/PQRI: Gall Bladder Disease, Hepatitis, Pancreatitis Provider Diagnoses: Acute cholecystitis, Pancreatitis - Provider Notifications Discussed Care Of Patient With: Sunday Munoz Time Discussed With Above Provider: 09:24 Instructed by Provider To: Other - Dr. Munoz, surgery, recommends transfer because there is no GI coverage. I also consulted with Dr. Carlisle, [facility], who accepts the patient for transfer. Discharge - Discharge Plan Condition: Stable Disposition: OTHER Discharge Disposition Comment: Patient transferred to [facility]. Referrals: Francisco Cordova MD [Primary Care Provider] - The documentation as recorded by the Bj encinas Thomas accurately reflects the service I personally performed and the decisions made by me, Oneil Castañeda MD.
[2017-04-26] MEDS ORDERED: Morphine INJ* 2 MG/ML 1 ML CARPUJECT IV ONE (11:00)
[2017-04-26 11:13] LABS: Urine Appearance Clear; Urine Blood Negative (Negative); Urine Color Amber; Urine Ketones Negative (Negative); Urine Protein Negative (Negative); Urine Specific Gravity 1.008 (1.010-1.030); Urine Urobilinogen Negative (Negative)
[2017-04-26 11:59] VITALS: BP 105/69
== END 2017-04-26 11:56 ==
LOC: ED 07:46
DX: K81.0 Acute cholecystitis (principal); K85.90 Acute pancreatitis without necrosis or infection, unspecified; F17.290 Nicotine dependence, other tobacco product, uncomplicated; Z88.8 Allergy status to other drugs, medicaments and biological substances
CPT/HCPCS: 36415; 74019; 76705; 80053; 81003; 82150; 83605; 83690; 83735; 83880; 84484; 85025; 85610; 85730; 86140; 87040; 93005; 96365; 96375; 96376; 99284; J2270; J2543